=== PATIENT | female | born 1955 | race Caucasian/White ===

== ENCOUNTER → 2019-11-10 09:53 | Outpatient (BNVA) | payer MEDICAID, SELFPAY | PROVIDERS: Family Provider Nurse Practitioner Family; PCP Nurse Practitioner Family; Referring Provider Nurse Practitioner Family; Visit Provider Anesthesiology Pain Medicine | DX: M54.16 Radiculopathy, lumbar region (principal); M79.604 Pain in right leg; M79.605 Pain in left leg; F17.210 Nicotine dependence, cigarettes, uncomplicated | CPT/HCPCS: 64483; 64484; 77003; 99999 ==

== ENCOUNTER → 2019-11-25 13:15 | Outpatient (BNVA) | payer MEDICARE, SELFPAY | PROVIDERS: Family Provider Nurse Practitioner Family; PCP Nurse Practitioner Family; Visit Provider Anesthesiology Pain Medicine | DX: M54.16 Radiculopathy, lumbar region (principal); F17.210 Nicotine dependence, cigarettes, uncomplicated | CPT/HCPCS: 64483; 64484; J1040; J2001; J3490 ==

== ENCOUNTER → 2020-07-30 10:21 | Outpatient (BNVA) | payer MEDICARE, SELFPAY | PROVIDERS: Family Provider Nurse Practitioner Family; PCP Nurse Practitioner Family; Visit Provider Anesthesiology Pain Medicine | DX: M54.41 Lumbago with sciatica, right side (principal); M54.42 Lumbago with sciatica, left side; M54.16 Radiculopathy, lumbar region; M54.9 Dorsalgia, unspecified; F17.210 Nicotine dependence, cigarettes, uncomplicated | CPT/HCPCS: 64483; 64484; 99212; 99213; J1100; J3490 ==

== ENCOUNTER 2021-02-04 10:44 | Outpatient (CLI) | payer MEDICARE, SELFPAY ==
--- NOTE | 2021-02-04 11:03 | CT_ITS ---
WS: [id number] LDCT LUNG CANCER SCREENING TECHNIQUE: Noncontrast CT of the chest with coronal and sagittal reformatted images. CLINICAL INFORMATION: NICOTINE DEPENDENCE COMPARISON: None. DLP: 49.83 mGy.cm DIvol: 1.[address] scans at [facility] use at least one of these dose optimization techniques: automat ed exposure control; mA and/or kV adjustment per patient size (includes targeted exams where dose is matched to clinical indication); or iterative reconstruction. FINDINGS: Mild chronic emphysematous changes. No suspicious pulmonary parenchymal opacities. No acute pulmonary infiltrates. No consolidation or pleural fluid. No mediastinal or hilar lymphadenopathy. Coronary ca lcification. No axillary adenopathy. Cholecystectomy clips. CT/CT lung screening [id number] IMPRESSION: LUNG-RADS: 1-Negative FOLLOW UP: 12 Month: Continue annual screening with LDCT
== END 2021-02-04 10:45 | disposition home or self-care (01) ==
LOC: RAD 10:50
PROVIDERS: PCP Nurse Practitioner Family; Visit Provider Nurse Practitioner Family
DX: Z12.2 Encounter for screening for malignant neoplasm of respiratory organs (principal); Z87.891 Personal history of nicotine dependence
CPT/HCPCS: 71271

== ENCOUNTER 2022-07-26 11:57 | Outpatient (CLI) | payer MEDICARE, SELFPAY ==
--- NOTE | 2022-07-26 12:07 | CT_ITS ---
WS: [id number] LDCT LUNG CANCER SCREENING HISTORY: NICOTINE Dependence, cigarettes TECHNIQUE: Axial imaging performed from the apices to 1 cm below the costophrenic angles. Coronal and sagittal reformats are submitted with axial MIP series. All CT scans at [facility] use at least one of these dose optimization techniques: automated exposure control; mA and/or kV adjustment per patient size (includes targeted exams where dose is matched to clinical indication); or iterativ e reconstruction. DLP: 82.77 mGy.cm DIvol: Mean CTDIvol: 1.60 (mGy) COMPARISON: 02/04/2021 Diagnostic quality: Satisfactory Lung Nodules: 3 mm nodule periphery LEFT upper lobe. No endobronchial lesions. There is a thin septat ion through the proximal RIGHT main bronchus. Lungs: Moderate changes of emphysema. Heart: Normal size heart. No enlargement. No pericardial effusion. Other findings: Benign LEFT adrenal adenoma. Prior cholecystectomy. CT/CT lung screening [id number] IMPRESSION: LUNG-RADS: 2-Benign Appearance or Behavior FOLLOW UP: 12 Month: Continue annual screening with LDCT OTHER FINDINGS (S MODIFIER): None.
== END 2022-07-26 11:58 | disposition home or self-care (01) ==
LOC: RAD 11:59
PROVIDERS: PCP Registered Nurse; Visit Provider Registered Nurse
DX: Z12.2 Encounter for screening for malignant neoplasm of respiratory organs (principal); F17.210 Nicotine dependence, cigarettes, uncomplicated
CPT/HCPCS: 71271

== ENCOUNTER → 2023-05-24 13:50 | Outpatient (BNVA) | payer MEDICARE, SELFPAY | PROVIDERS: PCP Registered Nurse; Referring Provider Nurse Practitioner Family; Visit Provider Thoracic Surgery (Cardiothoracic Vascular Surgery) | DX: R20.9 Unspecified disturbances of skin sensation (principal) | CPT/HCPCS: 99203 ==

== ENCOUNTER 2023-07-27 09:52 | Outpatient (CLI) | payer MEDICARE, SELFPAY ==
--- NOTE | 2023-07-27 09:59 | CT_ITS ---
WS: [id number] LDCT LUNG CANCER SCREENING TECHNIQUE: Noncontrast CT of the chest with coronal and sagittal reformatted images. CLINICAL INFORMATION: NICOTINE DEPENDENCE, CIGARETTES COMPARISON: 2021 DLP: 66.80 mGy.cm DIvol: Mean CTDIvol: 1.50 (mGy) All CT scans at [facility] use at least one of these dose optimization techniques: automat ed exposure control; mA and/or kV adjustment per patient size (includes targeted exams where dose is matched to clinical indication); or iterative reconstruction. FINDINGS: Small 4 mm nodule RIGHT lower lobe laterally. Tiny 3 mm nodule LEFT upper lobe is stable. A few additional scattered tiny subpleural nodules. No new suspicious pulmonary parenchymal opacities. Recommend 12-month follow-up. LEFT lower lobe thyroid nodule measuring 12 mm. Normal caliber thoracic aorta. Aortic calcification. Coronary calcification. No mediastinal or hilar lymphadenopathy. No axillary lymphadenopathy. Moderate chronic emphysematous changes. Incidental stable 2.5 cm LEFT adrenal adenoma unchanged. Prio r cholecystectomy. Hypertrophic changes thoracic spine. IMPRESSION: CT/CT lung screening [id number] LUNG-RADS: 2-Benign Appearance or Behavior FOLLOW UP: 12 Month: Continue annual screening with LDCT
== END 2023-07-27 09:53 | disposition home or self-care (01) ==
LOC: RAD 09:53
PROVIDERS: PCP Registered Nurse; Visit Provider Nurse Practitioner Family
DX: Z12.2 Encounter for screening for malignant neoplasm of respiratory organs (principal); F17.210 Nicotine dependence, cigarettes, uncomplicated
CPT/HCPCS: 71271

== ENCOUNTER 2023-08-14 13:22 | Emergency (ER) | payer MEDICARE, SELFPAY ==
[2023-08-14 13:46] VITALS: BP 98/60; PULSE 99; RESP 18; TEMP 36.8; O2SAT 94; BMI 30.2
--- NOTE | 2023-08-14 14:11 | W.ED.EXTPRO ---
HPI - Extremity Problem General: Chief complaint: Extremity Problem,Nontraumatic Stated complaint: swollen right foot Time Seen by Provider: 08/14/23 14:02 Source: patient and family Mode of arrival: ambulatory Limitations: no limitations History of Present Illness: Patient is a nice 67-year-old female who presents to ED today at the request of her daughter for evaluation of pain and color changes to her right toes. Patient states she noticed color changes starting approximately 2 to 3 weeks ago but states pain just started a few days ago-pain seems to be at night when she goes to bed. She does not complain of classic claudication symptoms. She does chronically have cold feet . She was seen by Dr. Bueno here approximately 2 months ago and on that visit good pulses were noted throughout bilateral lower extremities. Discussed trialing her on nifedipine. She was felt at that time to have some peripheral vascular disease. No obvious vasospastic disease/embolic phenomenon however she is a chronic longstanding smoker. MD Complaint: extremity pain Onset (ago): week(s) Pain Consistency: constant Location: right and lower extremity Quality: burning Radiation: none Relieving factors: nothing Exacerbating factors: nothing Associated symptoms: Reports no associated symptoms; Deny chest pain Context: history of peripheral vascular disease Review of Systems Card: Denies: chest pain, palpitations, irregular heart rhythm, edema, swelling of feet/ankles, lightheadedness, syncope or pre-syncope Resp: Denies: dyspnea Musc: Reports: extremity pain; Denies: neck pain, back pain, extremity swelling, joint pain, joint swelling, joint redness or joint warmth Skin/Breast: Reports: other (color change to R toes) Neuro: Denies: numbness in extremities, weakness in extremities, sensory changes or difficulty walking PFSH ED PFSH: Family History Sister Cancer breast Chronic obstructive lung disease Diabetes Pulmonary emphysema Brother Cancer Diabetes Mother Chronic obstructive lung disease Pulmonary emphysema Social History Smoking and tobacco/nicotine status: current every day tobacco/nicotine user cigarettes Packs smoked per day: 1 Years cigarettes smoked: 61 [ Other cigarette details: 1 ppd] Alcohol intake: never Substance/Drug Use: never Lives independently: Yes Pets and animals: Yes Pets & animals: cat(s) and dog(s) Physical Exam Const: COMMON NORMALS: no acute distress, average body habitus, patient oriented x3, no limitations, healthy appearing, alert and well nourished Resp: COMMON NORMALS: normal respiratory effort and clear to auscultation bilaterally AUSCULTATION: clear to auscultation bilaterally Cardio: COMMON NORMALS: regular rate and regular rhythm RATE: regular rate RHYTHM: regular rhythm Extremity: COMMON NORMALS: full ROM, no joint enlargement, no clubbing, cyanosis or edema, no calf tenderness and no pedal edema GENERAL: Yes normal exam except as noted RIGHT LOWER EXTREMITY: Yes foot & digits LEFT LOWER EXTREMITY: Yes foot & digits OTHER: pt has easily palpable DP/PT pulses on L foot but not on R; right distal foot/toes are cool to the touch when compared to L and have a dusky appearance Neuro: COMMON NORMALS: patient oriented x3, moves all extremities, no focal motor deficits and no sensory deficits noted SENSORIUM/ORIENTATION: Yes alert Course Vital Signs: Vital signs: Vital Signs Temperature 98.3 F 08/14/23 13:46 Pulse Rate 99 08/14/23 13:46 Respiratory Rate 18 08/14/23 13:46 Blood Pressure 98/60 08/14/23 13:46 Pulse Oximetry 94 08/14/23 13:46 Oxygen Delivery Me thod Room Air 08/14/23 13:46 MDM - Extremity (Nontraumatic) Medical Decision Making Patient's ultrasound showing no stenosis or occlusion. DDx includes Raynaud's, blue toe syndrome, Buerger's disease. She has been offered trial of Nifedipine by vascular specialist Dr. Bueno but patient has not started this medication. She does chronically have low blood pressure so is worried about this. Recommend smoking cessation. Offered to get her another appointment with Dr. Bueno but she states she will follow up with primary care provider. Medical Records I reviewed the patient's medical records. Lab Data I reviewed the patient's lab results. 08/14/23 14:25 08/14/23 14:25 Radiology Impressions Duplex Scan Lower Extremity Artery 08/14/23 14:16 IMPRESSION: No stenosis or occlusion. Laboratory Results WBC 12.77 10^3/uL (3.29-11.43) H 08/14/23 14:25 RBC 4.25 10^6/uL (3.85-5.65) 08/14/23 14:25 Hgb 13.80 g/dL (11.27-16.99) 08/14/23 14:25 Hct 42.0 % (36-47) 08/14/23 14:25 MCV 98.8 fl (85-98) H 08/14/23 14:25 MCH 32.5 pg (27-33) 08/14/23 14:25 MCHC 32.9 g/dL (30-55) 08/14/23 14:25 RDW 15.5 % (12.1-15.1) H 08/14/23 14:25 Plt Count 269 10^3/cmm (157-399) 08/14/23 14:25 MPV 8.9 fL (7.4-10.4) 08/14/23 14:25 Neut % (Auto) 92.3 % 08/14/23 14:25 Lymph % (Auto) 4.2 % 08/14/23 14:25 [place] % (Auto) 2.3 % 08/14/23 14:25 Eos % (Auto) 0.0 % 08/14/23 14:25 Baso % (Auto) 0.2 % 08/14/23 14:25 Neut # (Auto) 11.80 10^3/uL (1.8-7.7) H 08/14/23 14:25 Lymph # (Auto) 0.5 10^3/uL (0.8-4.8) L 08/14/23 14:25 [place] # (Auto) 0.3 10^3/uL (0.2-0.9) 08/14/23 14:25 Eos # (Auto) 0.0 10^3/uL (0.0-0.8) 08/14/23 14:25 Baso # (Auto) 0.0 10^3/uL (0.0-0.1) 08/14/23 14:25 Nucleated RBC % (auto) 0 % 08/14/23 14:25 Nucleated RBCs # 0.0 /100WBC 08/14/23 14:25 PT 12.80 SECONDS (12.1-14.9) 08/14/23 14:25 INR 0.93 (0.8-1.2) 08/14/23 14:25 APTT 24.1 SECONDS (23.9-36.7) 08/14/23 14:25 Sodium 140 mmol/L (136-145) 08/14/23 14:25 Potassium 3.8 mmol/L (3.5-5.1) 08/14/23 14:25 Chloride 101 mmol/L (98-107) 08/14/23 14:25 Carbon Dioxide 25 mmol/L (22-29) 08/14/23 14:25 Anion Gap 17.8 (5-19) 08/14/23 14:25 BUN 18 mg/dL (8-23) 08/14/23 14:25 Creatinine 1.1 mg/dL (0.5-0.9) H 08/14/23 14:25 GFR Calculation 49.4 mL/min (90-130) L 08/14/23 14:25 Glucose 172 mg/dL (65-115) H 08/14/23 14:25 Calculated Osmolality 296 mOsm/kg (285-295) H 08/14/23 14:25 Calcium 9.3 mg/dL (8.5-10.5) 08/14/23 14:25 Total Bilirubin 0.3 mg/dL (0.15-1.2) 08/14/23 14:25 AST 23 U/L (0-32) 08/14/23 14:25 ALT 36 U/L (0-33) H 08/14/23 14:25 Alkaline Phosphatase 108 U/L (35-105) H 08/14/23 14:25 Total Protein 6.3 g/dL (6.6-8.7) L 08/14/23 14:25 Albumin 3.8 g/dL (3.5-5.2) 08/14/23 14:25 Globulin 2.5 g/dL (1.3-4.6) 08/14/23 14:25 All radiology interpretation(s) finalized by discharge Discharge Plan Discharge Patient Disposition: Home Clinical Impression: Blue toe syndrome Qualifiers: Laterality: right Qualified Code(s): 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 Condition: Stable Prescriptions: No Action acetaminophen [Tylenol Extra Strength] 500 mg tablet 500 mg PO .2 Q 6 hours PRN (Reason: Pain, Mild) montelukast 10 mg tablet 10 mg PO DAILY furosemide [Lasix] 40 mg tablet 40 mg PO DAILY fluticasone propionate [Allergy Relief (fluticasone)] 50 mcg/actuation spray,suspension 1 spray INTRANASAL DAILY Symbicort 160-4.5 mcg/actuation HFA aerosol inhaler 2 puff INHALATION BID cetirizine [Allergy Relief (cetirizine)] 10 mg tablet 10 mg PO DAILY albuterol sulfate [ProAir HFA] 90 mcg/actuation HFA aerosol inhaler 1 inh INHALATION .as needed famotidine 10 mg tablet 20 mg PO DAILY PRN (Reason: gerd) ezetimibe 10 mg tablet 10 mg PO DAILY cephalexin 250 mg capsule 250 mg PO TID Tums 500 500 mg calcium (1,250 mg) Tablet,Chewable 500 mg PO DAILY PRN (Reason: antacid) Discharge Orders: Discharge ED (Routine); Ordered 08/14/23 Ordered By: Afsaneh Fernandez Referrals: Jada Young DEFENSE ATTORNEY [Primary Care Provider] - Coding Level of Care Code ED Early Childhood Education Coordinator for Aura De Los Santos
--- NOTE | 2023-08-14 14:16 | USR_ITS ---
PROCEDURE INFORMATION: Exam: US Duplex Right Lower Extremity Arteries Or Arterial Bypass Grafts Exam date and time: 08/14/2023 2:41 PM Age: 67 years old Clinical indication: Other: See below; Additional info: Toes cold/discolored/pain TECHNIQUE: Imaging protocol: Right Real-time duplex scan of the arteries or arterial bypass grafts of the right lower extremity with 2-D regan scale, color Doppler flow and spectral waveform analysis. Images documented and saved. COMPARISON: No relevant prior studies available. FINDINGS: Right common femoral artery: No occlusion or significant stenosis. Normal waveform. No pseudoaneurysm in the inguinal region. Right superficial femoral artery: No occlusion or significant stenosis. Normal waveform. Right popliteal artery: No occlusion or significant stenosis. Normal waveform. Right calf/foot arteries: No occlusion or significant stenosis in the visualized arteries. Monophasic waveform in the posterior tibial artery. Dorsalis pedis artery is patent. Anterior tibial and peroneal arteries were either not visualized or not imaged. Soft tissues: No hematoma or collection. US/[place] [id number] IMPRESSION: No stenosis or occlusion.
[2023-08-14 14:31] LABS: Basophils % 0.2 %; Lymphocytes # 0.5 10^3/uL (0.8-4.8); Lymphocytes % 4.2 %; Mean Corpuscular HGB Conc 32.9 g/dL (30-55); Mean Corpuscular Hemoglobin 32.5 pg (27-33); Mean Corpuscular Volume 98.8 fl (85-98); Mean Platelet Volume 8.9 fL (7.4-10.4); Monocytes # 0.3 10^3/uL (0.2-0.9); Monocytes % 2.3 %; Neutrophils % 92.3 %; Nucleated Red Blood Cells % 0 %; Platelet Count 269 10^3/cmm (157-399); Red Blood Count 4.25 10^6/uL (3.85-5.65); Red Cell Distribution Width 15.5 % (12.1-15.1); White Blood Count 12.77 10^3/uL (3.29-11.43)
[2023-08-14 14:45] LABS: INR 0.93 (0.8-1.2)
[2023-08-14 14:46] LABS: Partial Thromboplastin Time 24.1 SECONDS (23.9-36.7)
[2023-08-14 14:51] LABS: Alanine Aminotransferase 36 U/L (0-33); Albumin Level 3.8 g/dL (3.5-5.2); Alkaline Phosphatase 108 U/L (35-105); Anion Gap 17.8 (5-19); Aspartate Amino Transferase 23 U/L (0-32); Blood Urea Nitrogen 18 mg/dL (8-23); Calcium 9.3 mg/dL (8.5-10.5); Carbon Dioxide 25 mmol/L (22-29); Chloride 101 mmol/L (98-107); Globulin 2.5 g/dL (1.3-4.6); Glomerular Filtration Rate 49.4 mL/min (90-130); Glucose 172 mg/dL (65-115); Osmolality Calculated 296 mOsm/kg (285-295); Potassium 3.8 mmol/L (3.5-5.1); Sodium 140 mmol/L (136-145); Total Bilirubin 0.3 mg/dL (0.15-1.2); Total Protein 6.3 g/dL (6.6-8.7)
[2023-08-14 16:17] VITALS: BP 112/72; PULSE 68; RESP 16; O2SAT 98
== END 2023-08-14 16:19 | disposition home or self-care (01) ==
PROVIDERS: Emergency Provider Physician Assistant; PCP Nurse Practitioner Family
DX: I75.021 Atheroembolism of right lower extremity (principal); F17.210 Nicotine dependence, cigarettes, uncomplicated
CPT/HCPCS: 36415; 80053; 85025; 85610; 85730; 93926; 99284

== ENCOUNTER → 2023-08-27 13:27 | Outpatient (BNVA) | payer MEDICARE, SELFPAY | PROVIDERS: PCP Nurse Practitioner Family; Visit Provider Podiatrist Foot & Ankle Surgery | DX: I73.9 Peripheral vascular disease, unspecified (principal); M79.671 Pain in right foot; M79.672 Pain in left foot; F17.200 Nicotine dependence, unspecified, uncomplicated | CPT/HCPCS: 99204 ==

== ENCOUNTER → 2023-09-18 14:15 | Outpatient (BNVA) | payer MEDICARE, SELFPAY | PROVIDERS: PCP Nurse Practitioner Family; Visit Provider Thoracic Surgery (Cardiothoracic Vascular Surgery) | DX: I73.9 Peripheral vascular disease, unspecified (principal); F17.210 Nicotine dependence, cigarettes, uncomplicated | CPT/HCPCS: 99213 ==

== ENCOUNTER 2023-09-22 09:28 | Emergency (ER) | payer MEDICARE, SELFPAY ==
[2023-09-22] VITALS (10 sets, daily range): BP systolic 120–150; BP diastolic 69–83; PULSE 87–98; RESP 18; TEMP 36.5; O2SAT 87–97; BMI 31.2
--- NOTE | 2023-09-22 09:43 | XRR_ITS ---
PROCEDURE INFORMATION: Exam: XR Chest Exam date and time: 09/22/2023 10:01 AM Age: 67 years old Clinical indication: Dyspnea; Additional info: SOB TECHNIQUE: Imaging protocol: Radiologic exam of the chest. Views: 1 view. COMPARISON: CT lung screening [id number] 07/27/2023 10:27 AM FINDINGS: Lungs: Hyperinflation. Slight probable atelectasis, fibrosis, and/or vascular structure projecting obliquely over right lung base. Mild interstitial prominence, possible fibrosis. Pleural spaces: Biapical pleural thickening appears chronic. No large or obvious pneumothorax nor pleural effusion seen. Heart/Mediastinum: Heart size appears within normal. Probable chronic fat pads about heart bilaterally, similar to images from CT 07/27/2023. Vasculature: Atherosclerotic disease aorta. Calcifications neck suggesting carotid artery calcifications bilaterally. Bones/joints: Degenerative changes spine. XR/XR chest 1V portable [id number] IMPRESSION: Hyperinflation. Slight probable atelectasis, fibrosis, and/or vascular structure projecting obliquely over right lung base. Mild interstitial prominence, possible fibrosis. Findings compatible with pulmonary emphysema.
--- NOTE | 2023-09-22 09:54 | ED_ITS ---
HPI - COVID 2 General: Chief Complaint: COVID symptoms Stated Complaint: Low O2 Time Seen by Provider: 09/22/23 09:44 Source: patient Mode of arrival: ambulatory Limitations: no limitations History of Present Illness: 67-year-old female states that she has h ad cough congestion over the last week. She does have a history of COPD she denies any fevers she denies any worse improved factors states that over the last 2 days she has had some slight hypoxia with exertion pulse ox here is 93% on room air she denies any pain. COVID 19 common symptoms: positive non-productive cough and dyspnea; negative fever(s), chills, body aches, headache(s), throat pain, nausea, vomiting or diarrhea COVID 19 other sytmptoms: negative chest pain COVID Results: 2 SARS-CoV-2 Antigen (Rapid) negative (Negative) 09/22/23 10:00 Review of Systems 2 Const: Denies: fever(s), chills, body aches or change in appetite ENMT: Denies: throat pain or dental pain Card: Denies: chest pain Resp: Reports: dyspnea, non-productive cough and wheezing GI: Denies: abdominal pain, nausea, vomiting or diarrhea : Denies: dysuria Musc: Denies: neck pain or back pain Skin/Breast: Denies: rash Neuro: Denies: headache(s) PFSH ED 2 PFSH: Family History Sister Cancer breast Chronic obstructive lung disease Diabetes Pulmonary emphysema Brother Cancer Diabetes Mother Chronic obstructive lung disease Pulmonary emphysema Social History Smoking and tobacco/nicotine status: current every day tobacco/nicotine user cigarettes Packs smoked per day: 1 Years cigarettes smoked: 61 [ Other cigarette details: 1 ppd] Alcohol intake: never Substance/Drug Use: never Lives independently: Yes Pets and animals: Yes Pets & animals: cat(s) and dog(s) Physical Exam 2 Const: COMMON NORMALS: no acute distress, patient oriented x3 and healthy appearing HENMT: COMMON NORMALS: normocephalic and atraumatic HEAD & SCALP: n ormocephalic and atraumatic Neck/C-Spine: COMMON NORMALS: full ROM and supple Chest: COMMONS NORMALS: normal inspection of the chest and normal palpation of entire chest wall Resp: COMMON NORMALS: normal respiratory effort, No retractions and No use of accessory muscles AUSCULTATION: wheezes Cardio: COMMON NORMALS: regular rate, regular rhythm and No murmurs present (Cardio) RATE: regular rate RHYTHM: regular rhythm GI: COMMON NORMALS: Normal to inspection, nondistended, normoactive bowel sounds present, Soft to palpation, non-tender and no masses PALPATION: Yes Soft to palpation Extremity: COMMON NORMALS: normal to inspection and full ROM Neuro: COMMON NORMALS: patient oriented x3, moves all extremities and no focal motor deficits Psych: COMMON NORMALS: mental status grossly normal, Normal thought process present and cooperative THOUGHT PROCESS: Normal thought process present Skin: COMMON NORMALS: no rashes or lesions noted and no wounds GENERAL SKIN EXAM: no rashes or lesions noted Course 2 Vital Signs: Vital signs: Vital Signs Temperature 97.7 F 09/22/23 09:38 Pulse Rate 97 09/22/23 11:17 Respiratory Rate 18 09/22/23 09:38 Blood Pressure 142/77 09/22/23 11:17 Pulse Oximetry 97 09/22/23 11:17 Oxygen Delivery Me thod Nasal Cannula 09/22/23 11:17 Oxygen Flow Rate 3 09/22/23 11:17 MDM - COVID Medical Decision Making Patient presents here with likely COPD exacerbation did give her Decadron here she had increased cough we will place her on doxycycline she did qualify for 3 L of home O2 will send her home on home oxygen she has follow-up with pulmonology here Dr. Santizo October she is return if worsening she understands agrees to plan. Medical Records I reviewed the patient's medical records. Lab Data I reviewed the patient's lab results. 09/22/23 10:28 09/22/23 10:28 Radiology Impressions Chest X-Ray 09/22/23 09:43 IMPRESSION: Hyperinflation. Slight probable atelectasis, fibrosis, and/or vascular structure projecting obliquely over right lung base. Mild interstitial prominence, possible fibrosis. Findings compatible with pulmonary emphysema. Laboratory Results WBC 11.00 10^3/uL (3.29-11.43) 09/22/23 10:28 RBC 4.22 10^6/uL (3.85-5.65) 09/22/23 10:28 Hgb 13.70 g/dL (11.27-16.99) 09/22/23 10:28 Hct 41.2 % (36-47) 09/22/23 10:28 MCV 97.6 fl (85-98) 09/22/23 10:28 MCH 32.5 pg (27-33) 09/22/23 10:28 MCHC 33.3 g/dL (30-55) 09/22/23 10:28 RDW 16.0 % (12.1-15.1) H 09/22/23 10:28 Plt Count 299 10^3/cmm (157-399) 09/22/23 10:28 MPV 9.0 fL (7.4-10.4) 09/22/23 10:28 Neut % (Auto) 75.7 % 09/22/23 10:28 Lymph % (Auto) 15.5 % 09/22/23 10:28 [place] % (Auto) 7.0 % 09/22/23 10:28 Eos % (Auto) 0.5 % 09/22/23 10:28 Baso % (Auto) 0.2 % 09/22/23 10:28 Neut # (Auto) 8.33 10^3/uL (1.8-7.7) H 09/22/23 10:28 Lymph # (Auto) 1.7 10^3/uL (0.8-4.8) 09/22/23 10:28 [place] # (Auto) 0.8 10^3/uL (0.2-0.9) 09/22/23 10:28 Eos # (Auto) 0.1 10^3/uL (0.0-0.8) 09/22/23 10:28 Baso # (Auto) 0.0 10^3/uL (0.0-0.1) 09/22/23 10:28 Nucleated RBC % (auto) 0 % 09/22/23 10:28 Nucleated RBCs # 0.0 /100WBC 09/22/23 10:28 Sodium 140 mmol/L (136-145) 09/22/23 10:28 Potassium 3.4 mmol/L (3.5-5.1) L 09/22/23 10:28 Chloride 101 mmol/L (98-107) 09/22/23 10:28 Carbon Dioxide 28 mmol/L (22-29) 09/22/23 10:28 Anion Gap 14.4 (5-19) 09/22/23 10:28 BUN 20 mg/dL (8-23) 09/22/23 10:28 Creatinine 1.1 mg/dL (0.5-0.9) H 09/22/23 10:28 GFR Calculation 49.4 mL/min (90-130) L 09/22/23 10:28 Glucose 110 mg/dL (65-115) 09/22/23 10:28 Calculated Osmolality 293 mOsm/kg (285-295) 09/22/23 10:28 Calcium 9.3 mg/dL (8.5-10.5) 09/22/23 10:28 Total Bilirubin 0.5 mg/dL (0.15-1.2) 09/22/23 10:28 AST 16 U/L (0-32) 09/22/23 10:28 ALT 32 U/L (0-33) 09/22/23 10:28 Alkaline Phosphatase 103 U/L (35-105) 09/22/23 10:28 NT-Pro-B Natriuret Pep 506 pg/mL (0-125) H 09/22/23 10:28 Total Protein 6.1 g/dL (6.6-8.7) L 09/22/23 10:28 Albumin 3.3 g/dL (3.5-5.2) L 09/22/23 10:28 Globulin 2.8 g/dL (1.3-4.6) 09/22/23 10:28 Influenza Type A Ag negative (Negative) 09/22/23 10:00 Influenza Type B Ag negative (Negative) 09/22/23 10:00 SARS-CoV-2 Ag (Rapid) negative (Negative) 09/22/23 10:00 2 SARS-CoV-2 Antigen (Rapid) negative (Negative) 09/22/23 10:00 All radiology interpretation(s) finalized by discharge Discharge Plan Discharge Patient Disposition: Home Clinical Impression: Acute exacerbation of chronic obstructive pulmonary disease Condition: Stable Prescriptions: New doxycycline hyclate 100 mg tablet 100 mg PO BID 10 Days Qty: 20 0RF ondansetron 4 mg tablet,disintegrating 4 mg PO Q6H PRN (Reason: nausea and vomiting) Qty: 14 0RF No Action acetaminophen [Tylenol Extra Strength] 500 mg tablet 500 mg PO .2 Q 6 hours PRN (Reason: Pain, Mild) montelukast 10 mg tablet 10 mg PO DAILY furosemide [Lasix] 40 mg tablet 40 mg PO DAILY fluticasone propionate [Allergy Relief (fluticasone)] 50 mcg/actuation spray,suspension 1 spray INTRANASAL DAILY Symbicort 160-4.5 mcg/actuation HFA aerosol inhaler 2 puff INHALATION BID cetirizine [Allergy Relief (cetirizine)] 10 mg tablet 10 mg PO DAILY albuterol sulfate [ProAir HFA] 90 mcg/actuation HFA aerosol inhaler 1 inh INHALATION .as needed famotidine 10 mg tablet 20 mg PO DAILY PRN (Reason: gerd) ezetimibe 10 mg tablet 10 mg PO DAILY pentoxifylline 400 mg tablet extended release 400 mg PO TID Qty: 90 3RF Rx Instructions: must administer with a meal/food clopidogrel 75 mg tablet 75 mg PO DAILY Qty: 30 3RF nifedipine 30 mg tablet extended release 30 mg PO DAILY Qty: 30 3RF bupropion HCl [Wellbutrin XL] 150 mg tablet extended release 24 hr 150 mg PO QAM Qty: 30 3RF tramadol 50 mg tablet 50 mg PO BID PRN (Reason: pain) Qty: 30 1RF cephalexin 250 mg capsule 250 mg PO TID Tums 500 500 mg calcium (1,250 mg) Tablet,Chewable 500 mg PO DAILY PRN (Reason: antacid) Discharge Orders: Discharge ED (Routine); Ordered 09/22/23 Ordered By: Peña Valle Other Ambulatory Orders: DME: Oxygen (Order) Location: None Selected Ordered By: Peña Valle Referrals: Jada Young NP [Primary Care Provider] - Discharge Diet: Advance as tolerated Discharge Activity: Resume usual activity Patient Instructions: COPD (Chronic Obstructive Pulmonary Disease) (ED) Coding Level of Care Code ED Bed Setter for Aura De Los Santos
[2023-09-22 10:22] LABS: Influenza A by IFA negative (Negative); Influenza B by IFA negative (Negative); SARS Covid-2 Antigen negative (Negative)
[2023-09-22 10:46] LABS: Basophils % 0.2 %; Eosinophils # 0.1 10^3/uL (0.0-0.8); Eosinophils % 0.5 %; Hematocrit 41.2 % (36-47); Lymphocytes # 1.7 10^3/uL (0.8-4.8); Lymphocytes % 15.5 %; Mean Corpuscular HGB Conc 33.3 g/dL (30-55); Mean Corpuscular Hemoglobin 32.5 pg (27-33); Mean Corpuscular Volume 97.6 fl (85-98); Monocytes # 0.8 10^3/uL (0.2-0.9); Neutrophils # 8.33 10^3/uL (1.8-7.7); Neutrophils % 75.7 %; Nucleated Red Blood Cells % 0 %; Platelet Count 299 10^3/cmm (157-399); Red Blood Count 4.22 10^6/uL (3.85-5.65)
[2023-09-22] MEDS: dexamethasone 10 mg/mL INJ IVP (11:15)
[2023-09-22 11:19] LABS: Alanine Aminotransferase 32 U/L (0-33); Albumin Level 3.3 g/dL (3.5-5.2); Alkaline Phosphatase 103 U/L (35-105); Anion Gap 14.4 (5-19); Aspartate Amino Transferase 16 U/L (0-32); Blood Urea Nitrogen 20 mg/dL (8-23); Calcium 9.3 mg/dL (8.5-10.5); Carbon Dioxide 28 mmol/L (22-29); Chloride 101 mmol/L (98-107); Globulin 2.8 g/dL (1.3-4.6); Glomerular Filtration Rate 49.4 mL/min (90-130); Glucose 110 mg/dL (65-115); NT Pro B Type Natriuretic Pept 506 pg/mL (0-125); Osmolality Calculated 293 mOsm/kg (285-295); Potassium 3.4 mmol/L (3.5-5.1); Sodium 140 mmol/L (136-145); Total Bilirubin 0.5 mg/dL (0.15-1.2); Total Protein 6.1 g/dL (6.6-8.7)
== END 2023-09-22 12:54 | disposition home or self-care (01) ==
PROVIDERS: Emergency Provider Emergency Medicine; PCP Nurse Practitioner Family
DX: J44.1 Chronic obstructive pulmonary disease with (acute) exacerbation (principal); Z79.02 Long term (current) use of antithrombotics/antiplatelets; Z11.52 Encounter for screening for COVID-19; F17.210 Nicotine dependence, cigarettes, uncomplicated
CPT/HCPCS: 36415; 71045; 80053; 83880; 85025; 87426; 87804; 96374; 99284; J1100

== ENCOUNTER 2023-09-26 15:45 | Outpatient (CLI) | payer MEDICARE, SELFPAY ==
[2023-09-26] MEDS: iohexol 350 mg/mL 500 mL Btl (per mL) IV (16:17)
--- NOTE | 2023-09-26 16:30 | CTR_ITS ---
PROCEDURE INFORMATION: Exam: CTA Abdominal Aorta and Bilateral Lower Extremities (Run-off) With Contrast Exam date and time: 09/26/2023 4:01 PM Age: 67 years old Clinical indication: Prior surgery; Surgery date: 6+ months; Surgery type: Gb, tubal ligation; Patient HX: Leg pain; RT foot swollen x6 wks with purple toes, 3us neg for dvt TECHNIQUE: Imaging protocol: Computed tomographic angiography of the of the abdominal aorta, pelvis and bilateral lower extremities with contrast. 3D rendering (Not supervised by radiologist): MIP and/or 3D reconstructed images were created by the technologist. Radiation optimization: All CT scans at this facility use at least one of these dose optimization techniques: automated exposure control; mA and/or kV adjustment per patient size (includes targeted exams where dose is matched to clinical indication); or iterative reconstruction. Contrast material: OMNI 350; Contrast volume: 125 ml; Contrast route: INTRAVENOUS (IV); COMPARISON: [place] [id number] 08/14/2023 2:41 PM RADIATION DOSE METRICS: Total DLP (mGy-cm): 1263.99 FINDINGS: Aorta: Moderate atherosclerosis of the aorta. No aneurysm or dissection. Celiac trunk and mesenteric arteries: No occlusion or significant stenosis. Renal arteries: No occlusion or significant stenosis. Right iliac arteries: No occlusion or significant stenosis. Right femoral/popliteal arteries: The right popliteal artery has 30-50% stenosis related to atherosclerotic changes proximally with occlusion at the level of the knee joint. Right infrapopliteal arteries: There is reconstitution of the right infrapopliteal vessels at the bifurcation, likely from collaterals. The bifurcation is in high position which is likely an anatomic variant. The right anterior tibial artery is patent. The right posterior tibial artery is occluded at its origin. The right peroneal artery is patent with collateral supply to the posterior tibial artery distribution at the level of the ankle. Left iliac arteries: No occlusion or significant stenosis. Left femoral/popliteal arteries: No occlusion or significant stenosis. Left infrapopliteal arteries: No occlusion or significant stenosis. Lungs: Partially seen anterior left lower lobe scarring or atelectasis, unchanged. Liver: Suspected fatty infiltration of the liver. Gallbladder and bile ducts: Cholecystectomy. Pancreas: Unremarkable. No mass. No ductal dilation. Spleen: Normal. No splenomegaly. Adrenal glands: There is a left adrenal gland mass measuring 2.2 cm which is indeterminate. Statistically this is most likely an adenoma. Kidneys and ureters: Normal. No mass. Stomach and bowel: There are diverticuli in the sigmoid colon with wall thickening versus underdistention diffusely in the colon. Appendix: No evidence of appendicitis. Urinary bladder: Unremarkable. No mass. Reproductive: Unremarkable as visualized. Intraperitoneal space: Unremarkable. No free air. No significant fluid collection. Lymph nodes: No lymphadenopathy. Bones/joints: No acute fracture. No dislocation. Soft tissues: Unremarkable. CT/CT angio abd aorta runof [id number] IMPRESSION: 1. There is occlusion of the distal right popliteal artery. The right posterior tibial artery is also occluded with reconstitution at the level ankle joint from collaterals. The right anterior tibial and peroneal arteries are patent and likely supplied by collaterals. 2. The colon has diffuse wall thickening with distal diverticuli. Correlate for colitis. 3. Indeterminate 2.2 cm left adrenal gland mass statistically most likely an adenoma.
== END 2023-09-26 15:46 | disposition home or self-care (01) ==
LOC: RAD 15:45
PROVIDERS: PCP Nurse Practitioner Family; Visit Provider Thoracic Surgery (Cardiothoracic Vascular Surgery)
DX: I70.201 Unspecified atherosclerosis of native arteries of extremities, right leg (principal); M79.89 Other specified soft tissue disorders; R23.8 Other skin changes
CPT/HCPCS: 75635; Q9967

== ENCOUNTER → 2023-09-27 11:08 | Outpatient (BNVA) | payer MEDICARE, SELFPAY | PROVIDERS: PCP Nurse Practitioner Family; Visit Provider Thoracic Surgery (Cardiothoracic Vascular Surgery) | DX: I73.9 Peripheral vascular disease, unspecified (principal); F17.210 Nicotine dependence, cigarettes, uncomplicated | CPT/HCPCS: 99213 ==

== ENCOUNTER → 2023-10-03 12:27 | Outpatient (BNVA) | payer MEDICARE, SELFPAY | PROVIDERS: PCP Nurse Practitioner Family; Visit Provider Internal Medicine | DX: R07.9 Chest pain, unspecified (principal); I73.9 Peripheral vascular disease, unspecified; R58 Hemorrhage, not elsewhere classified; F17.210 Nicotine dependence, cigarettes, uncomplicated; R94.31 Abnormal electrocardiogram [ECG] [EKG] | CPT/HCPCS: 36415; 80048; 85025; 85610; 93005; 99204 ==

== ENCOUNTER → 2023-10-05 12:54 | Outpatient (BNVA) | payer MEDICARE, SELFPAY | PROVIDERS: PCP Nurse Practitioner Family; Visit Provider Thoracic Surgery (Cardiothoracic Vascular Surgery) | DX: I73.9 Peripheral vascular disease, unspecified (principal); L97.512 Non-pressure chronic ulcer of other part of right foot with fat layer exposed; L97.421 Non-pressure chronic ulcer of left heel and midfoot limited to breakdown of skin | CPT/HCPCS: 11042; 97597; 99213; A6210 ==

== ENCOUNTER 2023-10-10 08:25 | Outpatient (CLI) | payer MEDICARE, SELFPAY ==
[2023-10-10] VITALS (52 sets, daily range): BP systolic 89–132; BP diastolic 48–68; PULSE 68–107; RESP 15–33; TEMP 36.8–37.2; O2SAT 93–100; BMI 31.2
--- NOTE | 2023-10-10 09:00 | XACV_ITS ---
Exam Room: 2 Ht: 152 cm Wt: 73 kg BSA: 1.78 m2 Gender: Female : 1955 Any Known Allergies: Other Exam Priority: Routine Procedure(s): Procedure Description: Diagnostic procedure Procedure Description: Peripheral Cath Diagnostic Procedure Procedure Description: Abdominal aortic angiography Procedure Description: Lower extremities' angiography Procedure Description: Peripheral vascular Intervention Procedure Description: PV Balloon Abdominal Diagnostic Findings Distal abdominal aorta: Patent. Lower Extremity Diagnostic Findings INDICATION: Chronic limb threatening ischemia of right lower extremity/ Critical limb ischemia/non healing wounds. Right Mid-longitudinal Popliteal Artery: Total 100% occlusion. Right lower extremity findings: Right common iliac artery is patent. Right external iliac artery is patent. Right internal iliac artery is patent. Right common femoral artery is patent. Right profunda artery is patent. Right SFA is patent. Right popliteal artery is totally occluded with collateral flow below the knee which is very slow. It is heavily calcified. Below the knee patient has patent peroneal artery. Sluggish flow is noted in anterior tibial artery. Posterior tibial artery is totally occluded.. Left lower extremity findings: Left common iliac artery is patent. Left external iliac artery is patent. Left internal iliac artery is patent. Left common femoral artery is patent. Left profunda artery is patent. Left SFA is patent. Left popliteal artery is patent. Below the knee patient has three-vessel runoff with patent posterior tibial, anterior tibial and peroneal arteries.. Lower Extremity Interventional Findings Right Mid-longitudinal Popliteal Artery: 100% stenosis treated with AB ARMADA 35 OTW [id number] and Lutonix DCB 5.0 X 100mm. Procedure detail: We obtained access in the left common femoral artery. After diagnostic images were taken, to be decided to perform balloon angioplasty of the totally occluded right popliteal artery. We used a Glidewire and UF catheter to go up and over into the right SFA. Over the wire, sheath was switched to long 45 cm Cook sheath. Using seeker support catheter and Glidewire we crossed the totally occluded segment of right popliteal artery. This is calcified vessel. Seeker support catheter was advanced into the TP segment to confirm true lumen placement. Glidewire was placed again through the seeker catheter. We then performed balloon angioplasty with 4.0 x 100 mm [place] balloon. There was calcification versus small dissection at the site. We then performed balloon angioplasty with 5.0 x 100 mm Lutonix drug-coated balloon. This expanded the vessel better.At the distal edge of popliteal artery, there was significant narrowing noted. We administered nitro that resolved narrowing that was secondary to spasm. Although there was residual stenosis with possible nonflow limiting dissection at site of popliteal artery, flow was significantly better and brisk. With improvement of the flow with intention of wound healing, we decided to not stent this area as patency of the stent will be low given location in heavily calcified popliteal artery.. Conclusions Totally occluded right popliteal artery that is heavily calcified. S/p successful revascularization with balloon angioplasty. Small sized dissection versus residual stenosis secondary to calcification noted in the popliteal artery. As flow has significantly improved and is in-line (previous occluded vessel and collateral) , and intention is wound healing , we did not place stent. Stent patency at popliteal artery location with the calcified vessel will be very low.. was treated with a Balloon, and Balloon. Right Mid-longitudinal Popliteal Artery was treated with two Balloon. Recommendations Antiplatelet therapy. Follow up with wound care. Outpatient cardiology follow up in 1 week. Pressures Phase:Rest AO : 145 / 58 ( 88 ) @ 10:12:00 AM 136 / 57 ( 86 ) @ 10:17:00 AM 140 / 56 ( 88 ) @ 10:28:00 AM Hemodynamic Data Phase:Rest AO : 145.0 / 58.0 ( 88.0 ) @ 10:12:00 AM 136.0 / 57.0 ( 86.0 ) @ 10:17:00 AM 140.0 / 56.0 ( 88.0 ) @ 10:28:00 AM Clinical Evaluation EBL: 5mL-10mL Procedural Details Procedure Consent Obtained. Admit Source: Out Patient. Pre-Procedure Time Out. Identified patient by full name and date of as verbalized by the patient/guarantor. Does the consent match the physician's order: Yes. Accurate & Complete Informed Consent: Yes. Inpatient/Outpatient History & Physical on Chart: Yes. If H&P is completed, is and addenduem needed: No; If yes, is the addendum complete: N/A. Visualize and Verify Site with Patient/Guarantor: N/A. Relevant Radiology Images available: Yes. The risks, benefits, and alternatives of sedation and/or procedure were discussed by physician. The patient agrees to continue. Procedure started. Correct patient, site and procedure confirmed by cath team. Current diagnosis: Critical limb ischemia. PERRLA. 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 Lungs diminished wheezes x 5 lobes. IV Site on Arrival: 20 gauge in the right anticubital. IV Fluids: 0.9% NaCl at 75ml/hr. 0 mL infused prior to cardiac cath tech. Pre Procedural Pulses: bilateral posterior tibial was Doppled. Pre Procedural Pulses: bilateral dorsalis pedis was Doppled. Oxygen started at 2liters/min via nasal canula. bilateral groins was prepped with chloroprep then draped in the usual sterile fashion. Physician notified. Baseline sample Acquired. HR: 73 BPM. Physician arrived. Physician scrubbed in. Time out performed with cath team. Lidocaine 1% infiltrated to the left groin. Arterial access obtained with micropuncture set. Lidocaine 1% infiltrated to the left groin. A 5Fr UF catheter in over wire. Abdominal aortogram performed in AP @ 10 mL/sec for a total of 30 mL. Glidewire in through UF catheter, glidewire parked in right SFA. Uf catheter out over glidewire. 6fr short sheath exchanged for 6fr 45cm flexor sheath over glidewire. DSA performed below right popliteal to better visualize distal vessels. DSA performed below right popliteal to better visualize distal vessels. Glidewire advanced to right popliteal. Seeker support catheter in over glidewire. Seeker catheter seated in the popliteal. Side port of sheath attached to Normal Saline flush at KVO to maintain patency. Glidewire out. Hand injection through seeker. Glidewire in through seeker catheter. Wire advanced to the peroneal artery. Seeker catheter out. Balloon and wire inserted to the popliteal. Inflation number : 1 A AB ARMADA 35 OTW [id number] was prepped and advanced across the Mid Popliteal, Right , then inflated to 8 TOY for 1:32 seconds. Balloon out over wire. Angiography performed, checking results. Balloon inserted over the wire to the popliteal. Inflation number : 2 A Lutonix DCB 5.0 X 100mm was prepped and advanced across the Mid Popliteal, Right , then inflated to 4 TOY for 1:30 seconds. Balloon out over wire. Angiography performed, checking results. Results checked with DSA. 6fr 45 cm flexor exchanged for 6fr short sheath over glidewire. ACT drawn. Results 316 seconds. Therapeutic limits - pre-heparin administration 90-150 seconds and monitoring heparin during a vascular procedure >250 seconds. Sheath injected in Left common femoral artery and runoff performed. A Suture was successful obtaining hemostatsis at the Left Femoral artery insertion site. Sheath(s) sutured into position with 2-0 silk and sterile 4x4's and Op-site applied over the site. No oozing or signs and symptoms of hematoma noted. Arterial sheath flushed and connected to tranducer and pressure bag with heparinized saline. Post Procedure: Pulses reassessed and unchanged. PERRLA. 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 No VTE prophylaxis required. Post-op diagnosis: Total occlussion of right popliteal artery. S/p revascularization with balloon angioplasty. Complications: None. Estimated blood loss: 5mL-10mL. Responsiveness - Normal response to verbal stimuli; alert and oriented, PERRLA. Airway - Unaffected, no intervention required; spontaneous ventilation. Circulation: W/N/L, pulses unchanged. Nausea/Vomiting: No. Total IV fluids: 60 mL. Medication's Wasted: Nitro = 49.6 mg. Medication's Wasted: Other = Fentanyl 50 mcg. Procedure completed. Patient transferred by bed to 1st floor. Vital chart was stopped. Access Site Site: Left Femoral artery Sheath Size: 6 Fr Hemostasis Method: Suture Hemostasis Success: Successful Procedure Medications Start: 10:02 AM Stop: 10:02 AM Medication: Versed 1 mg and Fentanyl 25 mcg Amount: 1 Route: I.V. Start: 10:27 AM Stop: 10:27 AM Medication: Heparin Amount: 5000 units Route: I.V. Start: 10:28 AM Stop: 10:28 AM Medication: Versed 1 mg and Fentanyl 25 mcg Amount: 1 Route: I.V. Start: 10:33 AM Stop: 10:33 AM Medication: Heparin Amount: 1000 units Route: I.V. Start: 10:45 AM Stop: 10:45 AM Medication: Nitrogylcerin Amount: 400 mcg Route: I.A. Start: 10:56 AM Stop: 10:56 AM Medication: Plavix Amount: 600 mg Route: P.O. I, the attending physician, have reviewed and verified all procedure medications. Yes, all medications given per verbal order History/Risk Factors Hypertension: No Dyslipidemia: No Peripheral Arterial Disease (PAD): No Myocardial Infarction (MO): No Obesity: No Renal Disease: No Tobacco Use: Current/Recent(w/in 1 year) Prior Interventions PCI: No CABG: No Valve Surgery: No Report Signatures Finalized by Eligio Archuleta MD on 10/20/2023 05:09 PM
[2023-10-10] MEDS: diphenhydrAMINE 50 mg Capsule PO (09:15)
[2023-10-10] MEDS: aspirin 325 mg Tablet PO (09:15)
[2023-10-10 09:38] LABS: Anion Gap 13.3 (5-19); Blood Urea Nitrogen 17 mg/dL (8-23); Calcium 9.7 mg/dL (8.5-10.5); Carbon Dioxide 32 mmol/L (22-29); Chloride 94 mmol/L (98-107); Glomerular Filtration Rate 49.4 mL/min (90-130); Glucose 114 mg/dL (65-115); Osmolality Calculated 284 mOsm/kg (285-295); Potassium 3.3 mmol/L (3.5-5.1); Sodium 136 mmol/L (136-145)
--- NOTE | 2023-10-10 09:54 | W.PM.OPSUD ---
Surgery/Procedure H&P Update DATE OF PROCEDURE: October 10, 2023 DATE H&P PERFORMED: 10/03/23 H&P UPDATE INFORMATION: I have reviewed H&P completed within last 30 days, I have examined patient prior to procedure and No changes to prior documentation PREOP DIAGNOSIS: Chronic limb threatening ischemia of right lower extremity PRIMARY INDICATION FOR PROCEDURE: Chronic limb threatening ischemia of right lower extremity PLANNED PROCEDURE: Operation Date: 10/10/23 10:00 Proposed Procedures p perip angiogram 34504,I73.9(Not Applicable) - Eligio Archuleta M.D Possible intervention PATIENT REASSESSED PRIOR TO SEDATION, WITH NO CHANGE NOTED: Yes PHYSICAL EXAM: alert, oriented x 3, clear to auscultation bilaterally and regular rate & rhythm AIRWAY EVAL/ANESTHESIA PLAN: normal airway, ASA III, Local Anesthesia, Risks, benefits & alternatives of sedation and/or procedure discussed and Patient agrees to continue as planned ADDITIONAL INFORMATION: Moderate sedation
[2023-10-10] MEDS: sodium chloride 0.9% 1,000 ML 75 ML IV (12:00)
[2023-10-10 13:39] LABS: Partial Thromboplastin Time 138.8 SECONDS (23.9-36.7)
[2023-10-10 15:43] LABS: Partial Thromboplastin Time 29.8 SECONDS (23.9-36.7)
[2023-10-10] MEDS: albuterol 2.5 mg/3 mL Neb INHALATION (15:51)
[2023-10-10] MEDS: fentaNYL 50 mcg/mL INJ 2mL 25 MCG IVP (16:06)
--- NOTE | 2023-10-10 21:11 | PC.NURSE ---
Patient called for nurse, bleeding was present at left groin from previous sheath pulled. Left leg and bed pad saturated with blood. Patient placed on continuous VS monitoring. Pressure held at site for twenty minutes. Site dressed with 4x4 and tegaderm. Area around site is soft, nontender, no hematoma or bleeding present. Educated patient on post sheath pull protocol. Bedrest, not moving leg, supporting site if coughing. Patient verbalized understanding.
[2023-10-11] VITALS (47 sets, daily range): BP systolic 99–132; BP diastolic 55–76; PULSE 82–113; RESP 15–34; TEMP 36.8–37.2; O2SAT 88–100
[2023-10-11] MEDS: ezetimibe 10 mg Tablet PO (09:15)
[2023-10-11] MEDS: montelukast sodium 10 mg Tablet PO (09:15)
[2023-10-11] MEDS: rivaroxaban 10 mg Tablet PO (09:15)
[2023-10-11] MEDS: aspirin 81 mg EC Tablet PO (09:15)
[2023-10-11] MEDS: albuterol 2.5 mg/3 mL Neb INHALATION (09:30)
--- NOTE | 2023-10-11 09:30 | PC.NURSE ---
called crisis therapist on pt's bmp results received telephone order to give 40 meq orally once. and he will update discharge meds.
[2023-10-11 10:00] LABS: Anion Gap 13.2 (5-19); Blood Urea Nitrogen 13 mg/dL (8-23); Calcium 9.1 mg/dL (8.5-10.5); Carbon Dioxide 29 mmol/L (22-29); Chloride 98 mmol/L (98-107); Glomerular Filtration Rate 49.4 mL/min (90-130); Glucose 153 mg/dL (65-115); Osmolality Calculated 287 mOsm/kg (285-295); Potassium 3.2 mmol/L (3.5-5.1); Sodium 137 mmol/L (136-145)
--- NOTE | 2023-10-11 10:40 | PM.DCS ---
Discharge Providers Date of Admission: 10/10/23 11:15 Date of Discharge: October 11, 2023 Attending Provider at Admission: Eligio Archuleta M.D Attending Provider at Discharge: Eligio Archuleta M.D Primary Care Provider: Jada Young NP Reason for Visit Reason for Visit: I73.9 Brief History: 67-year-old woman with past medical history of hyperlipidemia has nonhealing wounds on right foot. Also significant pain on rest. CTA showing total occlusion of the popliteal artery. Plan for peripheral angiogram with possible intervention. Hospital Course Hospital Course Peripheral angiogram confirmed total occlusion of right popliteal artery. She had successful revascularization with balloon angioplasty. Below the knee has two-vessel runoff. She was observed overnight and stayed stable. Renal function was also stable. Discharged home in a stable condition. Physical Exam Narrative: GENERAL: Patient is alert, awake and oriented x3. [] NECK: No jugular vein distension. [] HEENT: No cyanosis. No icterus. No pallor. [] HEART: Regular S1 and S2. No murmur, rub or gallop. [] LUNGS: Clear to auscultate bilaterally. [] CENTRAL NERVOUS SYSTEM: Grossly nonfocal. [] EXTREMITIES: Lower extremities with no edema. Lower extremities are warm. Dressing applied on the wound. Discharge Data Studies Completed and Pending Pending at discharge Category Date Time Status BUSINESS UNIT DIRECTOR request for service Routine Exams 10/10/23 09:00 Taken Laboratory Results APTT 29.8 SECONDS (23.9-36.7) D 10/10/23 15:12 Sodium 137 mmol/L (136-145) 10/11/23 08:58 Potassium 3.2 mmol/L (3.5-5.1) L 10/11/23 08:58 Chloride 98 mmol/L (98-107) 10/11/23 08:58 Carbon Dioxide 29 mmol/L (22-29) 10/11/23 08:58 Anion Gap 13.2 (5-19) 10/11/23 08:58 BUN 13 mg/dL (8-23) 10/11/23 08:58 Creatinine 1.1 mg/dL (0.5-0.9) H 10/11/23 08:58 GFR Calculation 49.4 mL/min (90-130) L 10/11/23 08:58 Glucose 153 mg/dL (65-115) H 10/11/23 08:58 Calculated Osmolality 287 mOsm/kg (285-295) 10/11/23 08:58 Calcium 9.1 mg/dL (8.5-10.5) 10/11/23 08:58 Vitals Last Vital Signs Temp 98.3 F 10/11/23 08:09 Pulse 87 10/11/23 09:40 Resp 20 H 10/11/23 09:40 BP 99/55 10/11/23 08:09 Pulse Ox 97 10/11/23 09:32 O2 Del Method Room Air 10/11/23 09:32 O2 Flow Rate 2 10/10/23 20:22 Discharge Plan Discharge Patient Disposition: Home Condition: Stable Prescriptions: New aspirin 81 mg Tablet,Delayed Release (Dr/Ec) 81 mg PO DAILY Qty: 90 3RF Xarelto 2.5 mg tablet 2.5 mg PO BID Qty: 120 1RF Continued acetaminophen [Tylenol Extra Strength] 500 mg tablet 500 mg PO .2 Q 6 hours PRN (Reason: Pain, Mild) montelukast 10 mg tablet 10 mg PO DAILY furosemide [Lasix] 40 mg tablet 40 mg PO DAILY Symbicort 160-4.5 mcg/actuation HFA aerosol inhaler 2 puff INHALATION BID cetirizine [Allergy Relief (cetirizine)] 10 mg tablet 10 mg PO DAILY albuterol sulfate [ProAir HFA] 90 mcg/actuation HFA aerosol inhaler 1 inh INHALATION .as needed famotidine 10 mg tablet 20 mg PO TID fluticasone propionate [Allergy Relief (fluticasone)] 50 mcg/actuation spray,suspension 1 spray INTRANASAL DAILY PRN (Reason: Allergy Symptoms) ezetimibe 10 mg tablet 10 mg PO DAILY tramadol 50 mg tablet 50 mg PO BID PRN (Reason: pain) Qty: 30 1RF ondansetron 4 mg tablet,disintegrating 4 mg PO Q6H PRN (Reason: nausea and vomiting) Qty: 14 0RF calcium carbonate 500 mg calcium (1,250 mg) Tablet,Chewable 500 mg PO DAILY PRN (Reason: antacid) Discharge Orders: Discharge Order (Routine); Ordered 10/11/23 Ordered By: Eligio Archuleta Referrals: Keisha Tolliver FNP [Nurse Practitioner] - 10/23/23 2:30 pm Discharge Diet: Cardiac Discharge Activity: Increase activity as tolerated Patient Instructions: Rivaroxaban (By mouth), Peripheral Vascular Angioplasty (DC), Opioid Safety, Post Angiogram Home Care Instructions Discharge Attestations Time Spent in Discharge Care*: less than 30 min Quality Metrics Clinical Quality Measures [ No reported AMI, CVA or VTE this stay] Coding Level of Care Code Acute Code for g Magali
[2023-10-11] MEDS: potassium chloride ER 20 mEq Tablet 40 MEQ PO (11:06)
--- NOTE | 2023-10-11 11:28 | PC.NURSE ---
called [facility] in [place] as pt's preferred pharmacy
== END 2023-10-11 11:51 | disposition home or self-care (01) ==
LOC: CCL 08:32 → CSU 11:17
PROVIDERS: PCP Nurse Practitioner Family; Visit Provider Internal Medicine
DX: I70.201 Unspecified atherosclerosis of native arteries of extremities, right leg (principal); E78.5 Hyperlipidemia, unspecified; S91.301A Unspecified open wound, right foot, initial encounter; X58.XXXA Exposure to other specified factors, initial encounter; F17.210 Nicotine dependence, cigarettes, uncomplicated
CPT/HCPCS: 36415; 37224; 75625; 75716; 80048; 85347; 85730; 94640; 96361; 96365; 99152; 99153; C1725; C1769; C1887; C1894; C2623; G0378; J1644; J2250; J3010; J3490; J7030; J7613; Q0163; Q9967

== ENCOUNTER → 2023-10-12 12:56 | Outpatient (BNVA) | payer MEDICARE, SELFPAY | PROVIDERS: PCP Nurse Practitioner Family; Visit Provider Thoracic Surgery (Cardiothoracic Vascular Surgery) | DX: I73.9 Peripheral vascular disease, unspecified (principal); L97.512 Non-pressure chronic ulcer of other part of right foot with fat layer exposed; L97.421 Non-pressure chronic ulcer of left heel and midfoot limited to breakdown of skin | CPT/HCPCS: 11042; 11045; 97597 ==

== ENCOUNTER → 2023-10-19 13:40 | Outpatient (BNVA) | payer MEDICARE, SELFPAY | PROVIDERS: PCP Nurse Practitioner Family; Visit Provider Thoracic Surgery (Cardiothoracic Vascular Surgery) | DX: I73.9 Peripheral vascular disease, unspecified (principal); L97.512 Non-pressure chronic ulcer of other part of right foot with fat layer exposed; L97.511 Non-pressure chronic ulcer of other part of right foot limited to breakdown of skin; L97.422 Non-pressure chronic ulcer of left heel and midfoot with fat layer exposed | CPT/HCPCS: 11042; 11045 ==

== ENCOUNTER → 2023-10-23 15:21 | Outpatient (BNVA) | payer MEDICARE, SELFPAY | PROVIDERS: PCP Nurse Practitioner Family; Visit Provider Nurse Practitioner Family | DX: I73.9 Peripheral vascular disease, unspecified (principal); Z79.899 Other long term (current) drug therapy | CPT/HCPCS: 36415; 80048; 99214 ==

== ENCOUNTER → 2023-10-25 09:17 | Outpatient (BNVA) | payer MEDICARE, SELFPAY | PROVIDERS: PCP Nurse Practitioner Family; Visit Provider Thoracic Surgery (Cardiothoracic Vascular Surgery) | DX: I73.9 Peripheral vascular disease, unspecified (principal); L97.422 Non-pressure chronic ulcer of left heel and midfoot with fat layer exposed; L97.511 Non-pressure chronic ulcer of other part of right foot limited to breakdown of skin | CPT/HCPCS: 97597; 97598; A6248 ==

== ENCOUNTER → 2023-10-26 12:15 | Outpatient (BNVA) | payer MEDICARE, SELFPAY | PROVIDERS: PCP Nurse Practitioner Family; Visit Provider Podiatrist Foot & Ankle Surgery | DX: I73.9 Peripheral vascular disease, unspecified; L97.514 Non-pressure chronic ulcer of other part of right foot with necrosis of bone | CPT/HCPCS: 73630; 99214 ==

== ENCOUNTER 2023-10-29 05:09 | Day surgery (SDC) | payer MEDICARE, SELFPAY ==
[2023-10-29] VITALS (10 sets, daily range): BP systolic 95–121; BP diastolic 54–72; PULSE 67–83; RESP 10–17; TEMP 36.2–36.5; O2SAT 97–99; BMI 31.2
--- NOTE | 2023-10-29 06:27 | W.PM.OPSUD ---
Surgery/Procedure H&P Update DATE OF PROCEDURE: October 29, 2023 DATE H&P PERFORMED: 10/26/23 H&P UPDATE INFORMATION: I have reviewed H&P completed within last 30 days, I have examined patient prior to procedure, No changes to prior documentation and H&P is in [facility] EMR on date indicated PLANNED PROCEDURE: Operation Date: 10/29/23 07:00 Proposed Procedures p Incision And Drainage Incision of Bone Cortex(Right) - Neil Urrutia DPM
--- NOTE | 2023-10-29 06:28 | P.OP_ITS ---
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 CPT code 93438 Implants: None Surgeon: Neil Urrutia DPM Production Associate: Meghna Estimated blood loss: 5 8 IV fluids: 200 Urine output: 0 Complications: None Brief History: Discussed incision debridement in OR vs. a BK amputation, patient is on the mindset that she would like to perform all efforts and treatments to prevent amputation at this time. Salvage efforts would include oral antibiotics, Betadine wet-to-dry, nonweightbearing, surgical debridement, will start with outpatient surgery. Patient informed that should she develop fever, chills, shortness of breath, chest pain, increased redness or acute signs of spreading of infection to the right foot that she is to report to the emergency department. X-ray right foot taken in clinic October 26, 2023 negative for soft tissue emphysema, negative for foreign body. Erosive changes at the first metatarsal phalangeal joint medially could represent infectious process. X-ray read per radiology is indicative of osteomyelitis at the medial aspect of the first metatarsal head and medial aspect of the proximal phalanx base. Patient wishes to proceed with surgical debridement. Risks include failure to control source of infection, ascending infection, sepsis, need for amputation of foot or leg, need for long-term antibiotic therapy and wound care. Procedure: Under mild sedation the patient was brought to the operating room and remained on the gurney in supine position. A timeout was performed. Anesthesia was then administered by the anesthesia service. Local anesthesia was injected by myself consisting of 30 cc of one-to-one mixture 1% lidocaine and 0.5% Marcaine plain and a right male block fashion. Well-padded pneumatic tourniquet was applied to the right ankle. Right lower extremity was scrubbed, prepped and draped utilizing normal aseptic technique. Right foot was elevated and tourniquet inflated to 250 mmHg. Attention was directed to the right foot where a wound at the great toe extending to the metatarsal phalangeal joint was appreciated. Wound extended down to bone at the medial aspect of the right first metatarsal phalangeal joint. Full-thickness incision with a #15 blade was performed down to bone cortex which was then incised and debrided of devitalized bone down to healthy bleeding bone. Adjacent wound sharply and excisionally debrided with a 15 blade and pickups. 1 L of saline utilized to irrigate the wound and incision. Postdebridement wound measurements measured 6.3 cm x 2.3 cm x 0.3 cm. No proximal lymphangitic streaking and no proximal cellulitis or periwound erythema appreciated. The incision was further irrigated with saline solution, stable eschar At the distal dorsal right hallux was left intact. The incision was then dressed with Betadine wet-to-dry utilizing sterile 4 x 4's, Kerlix and Robert wrap covered by a stockinette without compression. Tourniquet was deflated and a prompt hyperemic response was noted to the distal digits of the right foot. Of note patient had good bleeding with debridement intraoperatively. Postop shoe was applied. Patient was transferred to the PACU with vital signs stable and vascular status intact. Following a period of postoperative monitoring she will be discharged home is to continue oral antibiotic regimen as prescribed in clinic. Will follow-up Sunday next week, sooner should she experience complications.
[2023-10-29] MEDS: sodium chloride 0.9% 1,000 ML 30 ML IV (06:45)
[2023-10-29] MEDS: ceFAZolin 2,000 MG in sodium chloride 0.9% (plus) 50 ML 100 MG IV (07:03)
[2023-10-29] MEDS: lidocaine 1% INJ 10 mL (per mL) 15 ML INJECTION (07:33)
[2023-10-29] MEDS: BUPivacaine 0.5% INJ 30 mL INJECTION (07:33)
--- NOTE | 2023-10-29 09:34 | ANES.PREANE2 ---
Pre-Anesthetic Assessment Height/Weight: Height 1.52 m Weight 72.575 kg Temp Pulse Resp BP Pulse Ox O2 Del Method O2 Flow Rate 97.7 F 75 17 115/59 99 Nasal Cannula 2 10/29/23 08:40 10/29/23 08:40 10/29/23 08:40 10/29/23 08:40 10/29/23 08:40 10/29/23 08:40 10/29/23 08:40 Preop Diagnosis: Osteomyelitis right foot Operation Date: 10/29/23 07:00 Proposed Procedures p Incision And Drainage Incision of Bone Cortex(Right) - Neil Urrutia DPM Familial anesthetic complications: none Was Beta Tisha taken within 24 hours: N/A Was Clonidine taken within 24 hours: N/A Last intake: Intake Last Liquid Date 10/28/23 Last Liquid Time 21:30 Last Solid Date 10/28/23 Last Solid Time 21:30 Social Tobacco and No alcohol Exam alert, oriented x 3 and regular rate & rhythm Airway Submandibular: within normal limits Cervical ROM: within normal limits Mallampati: Class II Dentition: false Pulmonary Chronic Obstructive Pulmonary Disease Home O2 3L CV/HEM PADz GI Gastroesophageal Reflux Disease Metabolic Morbid Obesity Anesthetic Plan ASA status: 3 Anesthesia: Choice Medications/Allergies Home Medications Medication Instructions Recorded Confirmed Last Taken Type acetaminophen 500 mg tablet 500 mg PO .2 Q 6 hours PRN Pain, 11/10/19 10/29/23 10/27/23 History (Tylenol Extra Strength) Mild albuterol sulfate 90 mcg/actuation 1 inh inhalation .as needed PRN 11/10/19 10/29/23 10/28/23 14:00 History aerosol inhaler (ProAir HFA) Wheezing budesonide-formoterol HFA 160 2 puff inhalation BID 11/10/19 10/29/23 10/28/23 18:00 History mcg-4.5 mcg/actuation aerosol inhaler (Symbicort) cetirizine 10 mg tablet (Allergy 10 mg PO DAILY 11/10/19 10/29/23 10/28/23 09:00 History Relief (cetirizine)) furosemide 40 mg tablet (Lasix) 40 mg PO DAILY 11/10/19 10/29/23 10/28/23 09:00 History montelukast 10 mg tablet 10 mg PO DAILY 11/10/19 10/29/2310/28/24 18:00 History ezetimibe 10 mg tablet (Zetia) 10 mg PO DAILY 05/24/23 10/29/23 10/28/23 09:00 History calcium carbonate 500 mg calcium 500 mg PO DAILY PRN antacid 08/14/23 10/26/23 Unknown History (1,250 mg) chewable tablet tramadol 50 mg tablet 50 mg PO BID PRN pain #30 tabs 09/18/23 10/29/23 Unknown Rx famotidine 10 mg tablet 20 mg PO TID gerd 09/27/23 10/29/23 10/25/23 History fluticasone propionate 50 1 spray intranasal DAILY PRN 09/27/23 10/29/23 Unknown History mcg/actuation nasal Allergy Symptoms spray,suspension (Allergy Relief (fluticasone)) aspirin 81 mg tablet,delayed 81 mg PO DAILY #90 tabs 10/11/23 10/29/23 10/28/23 18:00 Rx release potassium chloride 10 mEq 10 meq PO DAILY #90 tabs 10/11/23 10/29/23 10/28/23 18:00 Rx tablet,extended release rivaroxaban 2.5 mg tablet (Xarelto) 2.5 mg PO BID #120 tabs 10/11/23 10/29/23 10/28/23 18:00 Rx ciprofloxacin HCl 500 mg tablet 500 mg PO BID 7 days #14 tabs 10/26/23 10/29/23 10/28/23 18:00 Rx (Cipro) clindamycin HCl 300 mg capsule 300 mg PO TID 7 days #21 caps 10/26/23 10/29/23 10/28/23 12:00 Rx Allergies Allergy/AdvReac Type Severity Reaction Status Date / Time alendronate sodium Allergy contraindicated Verified 10/29/23 06:04 [From Fosamax] with esophagus stricture omeprazole Allergy nausea Verified 10/29/23 06:04 pantoprazole [From Protonix] Allergy shakes Verified 10/29/23 06:04 Sulfa (Sulfonamide Allergy Unknown Verified 10/29/23 06:04 Antibiotics) sulfamethoxazole Allergy nausea/upset Verified 10/29/23 06:04 [From Bactrim] stomach/vomitting trimethoprim [From Bactrim] Allergy nausea/upset Verified 10/29/23 06:04 stomach/vomitting PFSH Anesthesia Family History Sister Cancer breast Chronic obstructive lung disease Diabetes Pulmonary emphysema Brother Cancer Diabetes Mother Chronic obstructive lung disease Pulmonary emphysema Social History Smoking and tobacco/nicotine status: current every day tobacco/nicotine user cigarettes Packs smoked per day: 1 Years cigarettes smoked: 61 [ Other cigarette details: 1 ppd] Alcohol intake: never Substance/Drug Use: never Lives independently: Yes Pets and animals: Yes Pets & animals: cat(s) and dog(s) Data Anesthesia Cardiac Studies: No Data to Display
--- NOTE | 2023-10-29 16:18 | ANE.PACU2 ---
Inpatient post-anesthesia follow up: Airway intact: Yes Vital signs: Temperature 97.7 F Pulse Rate 75 Respiratory Rate 17 Blood Pressure 115/59 Pulse Oximetry 99 Oxygen Delivery Me thod Nasal Cannula Oxygen Flow Rate 2 Fraction of Inspir ed Oxygen Hydration adequate: Yes Nausea and vomiting: No Pain level: 1 Mental status: Baseline
== END 2023-10-29 09:03 | disposition home or self-care (01) ==
PROVIDERS: PCP Nurse Practitioner Family; Visit Provider Podiatrist Foot & Ankle Surgery
PROC: (CPT 28005; principal; 2023-10-29 07:00)
DX: M86.8X7 Other osteomyelitis, ankle and foot (principal); L97.514 Non-pressure chronic ulcer of other part of right foot with necrosis of bone; J44.9 Chronic obstructive pulmonary disease, unspecified; Z99.81 Dependence on supplemental oxygen; K21.9 Gastro-esophageal reflux disease without esophagitis; E66.01 Morbid (severe) obesity due to excess calories; Z68.31 Body mass index [BMI] 31.0-31.9, adult; Z79.82 Long term (current) use of aspirin; F17.210 Nicotine dependence, cigarettes, uncomplicated; I73.9 Peripheral vascular disease, unspecified
CPT/HCPCS: 28005; J0330; J0690; J1100; J1200; J2371; J2405; J2704; J3010; J3490; J7030

== ENCOUNTER → 2023-11-02 12:31 | Outpatient (BNVA) | payer MEDICARE, SELFPAY | PROVIDERS: PCP Nurse Practitioner Family; Visit Provider Podiatrist Foot & Ankle Surgery | DX: L97.514 Non-pressure chronic ulcer of other part of right foot with necrosis of bone (principal) | CPT/HCPCS: 87070; 87075; 87205; 99213 ==

== ENCOUNTER → 2023-11-09 11:27 | Outpatient (BNVA) | payer MEDICARE, SELFPAY | PROVIDERS: PCP Nurse Practitioner Family; Visit Provider Podiatrist Foot & Ankle Surgery | DX: I73.9 Peripheral vascular disease, unspecified (principal); L97.514 Non-pressure chronic ulcer of other part of right foot with necrosis of bone | CPT/HCPCS: 99213 ==

== ENCOUNTER → 2023-11-15 10:21 | Outpatient (BNVA) | payer MEDICARE, SELFPAY | PROVIDERS: PCP Nurse Practitioner Family; Visit Provider Podiatrist Foot & Ankle Surgery | DX: Z98.890 Other specified postprocedural states (principal); I73.9 Peripheral vascular disease, unspecified; L97.514 Non-pressure chronic ulcer of other part of right foot with necrosis of bone | CPT/HCPCS: 99213 ==

== ENCOUNTER → 2023-11-22 13:02 | Outpatient (BNVA) | payer MEDICARE, SELFPAY | PROVIDERS: PCP Nurse Practitioner Family; Visit Provider Podiatrist Foot & Ankle Surgery | DX: I73.9 Peripheral vascular disease, unspecified (principal); L97.514 Non-pressure chronic ulcer of other part of right foot with necrosis of bone | CPT/HCPCS: 99024; 99213 ==

== ENCOUNTER → 2023-12-04 14:30 | Outpatient (BNVA) | payer MEDICARE, SELFPAY | PROVIDERS: PCP Nurse Practitioner Family; Visit Provider Internal Medicine Pulmonary Disease | DX: R06.02 Shortness of breath (principal); J43.9 Emphysema, unspecified; I73.9 Peripheral vascular disease, unspecified; Z71.6 Tobacco abuse counseling; Z12.2 Encounter for screening for malignant neoplasm of respiratory organs; J44.9 Chronic obstructive pulmonary disease, unspecified; F17.210 Nicotine dependence, cigarettes, uncomplicated | CPT/HCPCS: 99204 ==

== ENCOUNTER → 2023-12-05 11:01 | Outpatient (BNVA) | payer MEDICARE, SELFPAY | PROVIDERS: PCP Nurse Practitioner Family; Visit Provider Podiatrist Foot & Ankle Surgery | DX: I73.9 Peripheral vascular disease, unspecified (principal); L97.514 Non-pressure chronic ulcer of other part of right foot with necrosis of bone | CPT/HCPCS: 99213 ==

== ENCOUNTER → 2023-12-19 09:58 | Outpatient (BNVA) | payer MEDICARE, SELFPAY | PROVIDERS: PCP Nurse Practitioner Family; Visit Provider Podiatrist Foot & Ankle Surgery | DX: I73.9 Peripheral vascular disease, unspecified (principal); L97.514 Non-pressure chronic ulcer of other part of right foot with necrosis of bone | CPT/HCPCS: 99213 ==

== ENCOUNTER 2023-12-20 12:30 | Outpatient (CLI) | payer MEDICARE, SELFPAY ==
[2023-12-20 12:59] VITALS: PULSE 93; RESP 18; O2SAT 98
[2023-12-20] MEDS: albuterol 2.5 mg/3 mL Neb INHALATION (12:59)
[2023-12-20 13:03] VITALS: PULSE 95
== END 2023-12-20 12:31 | disposition home or self-care (01) ==
LOC: RT 12:31
PROVIDERS: PCP Nurse Practitioner Family; Visit Provider Internal Medicine Pulmonary Disease
DX: R06.02 Shortness of breath (principal)
CPT/HCPCS: 94060; 94618; 94726; 94729; J7613

== ENCOUNTER → 2023-12-26 12:08 | Outpatient (BNVA) | payer MEDICARE, SELFPAY | PROVIDERS: PCP Nurse Practitioner Family; Visit Provider Internal Medicine | DX: I73.9 Peripheral vascular disease, unspecified (principal); F17.210 Nicotine dependence, cigarettes, uncomplicated | CPT/HCPCS: 99214 ==

== ENCOUNTER → 2024-01-03 13:40 | Outpatient (BNVA) | payer MEDICARE, SELFPAY | PROVIDERS: PCP Nurse Practitioner Family; Visit Provider Podiatrist Foot & Ankle Surgery | DX: I73.9 Peripheral vascular disease, unspecified (principal); L97.514 Non-pressure chronic ulcer of other part of right foot with necrosis of bone | CPT/HCPCS: 99213 ==

== ENCOUNTER → 2024-01-17 10:45 | Outpatient (BNVA) | payer MEDICARE, SELFPAY | PROVIDERS: PCP Nurse Practitioner Family; Visit Provider Podiatrist Foot & Ankle Surgery | DX: I73.9 Peripheral vascular disease, unspecified (principal); L97.514 Non-pressure chronic ulcer of other part of right foot with necrosis of bone | CPT/HCPCS: 99213 ==

== ENCOUNTER → 2024-02-07 11:08 | Outpatient (BNVA) | payer MEDICARE, SELFPAY | PROVIDERS: PCP Nurse Practitioner Family; Visit Provider Podiatrist Foot & Ankle Surgery | DX: Z98.890 Other specified postprocedural states (principal); I73.9 Peripheral vascular disease, unspecified; L97.514 Non-pressure chronic ulcer of other part of right foot with necrosis of bone | CPT/HCPCS: 99213 ==

== ENCOUNTER → 2024-02-20 11:20 | Outpatient (BNVA) | payer MEDICARE, SELFPAY | PROVIDERS: PCP Nurse Practitioner Family; Visit Provider Internal Medicine | DX: E05.90 Thyrotoxicosis, unspecified without thyrotoxic crisis or storm (principal); K21.9 Gastro-esophageal reflux disease without esophagitis | CPT/HCPCS: 36415; 83516; 84439; 84443; 84480; 86376; 86800; 99204 ==

== ENCOUNTER → 2024-03-03 11:14 | Outpatient (BNVA) | payer MEDICARE, SELFPAY | PROVIDERS: PCP Nurse Practitioner Family; Visit Provider Podiatrist Foot & Ankle Surgery | DX: Z98.890 Other specified postprocedural states (principal); I73.9 Peripheral vascular disease, unspecified; L97.514 Non-pressure chronic ulcer of other part of right foot with necrosis of bone | CPT/HCPCS: 99213 ==

== ENCOUNTER → 2024-04-07 10:24 | Outpatient (BNVA) | payer MEDICARE, SELFPAY | PROVIDERS: PCP Nurse Practitioner Family; Visit Provider Podiatrist Foot & Ankle Surgery | DX: Z98.890 Other specified postprocedural states (principal); I73.9 Peripheral vascular disease, unspecified; L97.514 Non-pressure chronic ulcer of other part of right foot with necrosis of bone | CPT/HCPCS: 99213 ==

== ENCOUNTER → 2024-05-06 13:45 | Outpatient (BNVA) | payer MEDICARE, SELFPAY | PROVIDERS: PCP Nurse Practitioner Family; Visit Provider Podiatrist Foot & Ankle Surgery | DX: I73.9 Peripheral vascular disease, unspecified (principal); L97.514 Non-pressure chronic ulcer of other part of right foot with necrosis of bone; Z98.890 Other specified postprocedural states; E05.90 Thyrotoxicosis, unspecified without thyrotoxic crisis or storm; K21.9 Gastro-esophageal reflux disease without esophagitis; R63.4 Abnormal weight loss; Z68.24 Body mass index [BMI] 24.0-24.9, adult | CPT/HCPCS: 99213; 99214 ==

== ENCOUNTER 2024-06-13 11:27 | Outpatient (CLI) | payer MEDICARE, SELFPAY ==
--- NOTE | 2024-06-13 11:45 | US_ITS ---
WS: [id number] THYROID ULTRASOUND HISTORY: r/o nodule COMPARISON: None available. Right lobe: 1.6 cm x 1.8 cm x 4.3 cm (w x ap x l). Volume: 6.1 cm3. Normal sized gland. There is a small spongiform nodule which is subcentimeter superior pole RIGHT thy roid. No solid nodule. No echogenic foci. Left lobe: 1.3 cm x 1.6 cm x 4.4 cm (w x ap x l). Volume: 4.5 cm3. Solid isoechoic mass with cystic component inferior pole measures 1.6 x 0.9 x 2.1 cm. There are few a dditional smaller colloid cyst. No echogenic foci. Isthmus: 0.2 cm. US/US thyroid [id number] IMPRESSION: TI-RADS 3: Nodule lower pole LEFT thyroid. Mildly suspicious. Recommend yearly follow-up ultrasound evaluation in 1, 3 and 5 years based upon TI-RADS recommen dations.
== END 2024-06-13 11:28 | disposition home or self-care (01) ==
LOC: RAD 11:28
PROVIDERS: PCP Nurse Practitioner Family; Visit Provider Internal Medicine
DX: E05.90 Thyrotoxicosis, unspecified without thyrotoxic crisis or storm (principal); E04.1 Nontoxic single thyroid nodule
CPT/HCPCS: 76536

== ENCOUNTER → 2024-06-17 14:48 | Outpatient (BNVA) | payer MEDICARE, SELFPAY | PROVIDERS: PCP Nurse Practitioner Family; Visit Provider Podiatrist Foot & Ankle Surgery | DX: I73.9 Peripheral vascular disease, unspecified (principal); L97.514 Non-pressure chronic ulcer of other part of right foot with necrosis of bone | CPT/HCPCS: 99213 ==

== ENCOUNTER → 2024-06-25 10:17 | Outpatient (BNVA) | payer MEDICARE, SELFPAY | PROVIDERS: PCP Nurse Practitioner Family; Visit Provider Internal Medicine | DX: E05.90 Thyrotoxicosis, unspecified without thyrotoxic crisis or storm (principal) | CPT/HCPCS: 84439; 84443; 84480 ==

== ENCOUNTER → 2024-06-27 09:35 | Outpatient (BNVA) | payer MEDICARE, SELFPAY | PROVIDERS: PCP Nurse Practitioner Family; Visit Provider Internal Medicine | DX: E05.90 Thyrotoxicosis, unspecified without thyrotoxic crisis or storm (principal); K21.9 Gastro-esophageal reflux disease without esophagitis; R63.4 Abnormal weight loss; E04.1 Nontoxic single thyroid nodule; Z68.25 Body mass index [BMI] 25.0-25.9, adult | CPT/HCPCS: 99214 ==

== ENCOUNTER → 2024-07-28 10:35 | Outpatient (BNVA) | payer MEDICARE, SELFPAY | PROVIDERS: PCP Nurse Practitioner Family; Visit Provider Podiatrist Foot & Ankle Surgery | DX: L97.514 Non-pressure chronic ulcer of other part of right foot with necrosis of bone (principal); I73.9 Peripheral vascular disease, unspecified | CPT/HCPCS: 99213 ==

== ENCOUNTER 2024-08-13 10:00 | Oncology outpatient (recurring) (ONCR) | payer MEDICARE, SELFPAY ==
[2024-07-30 12:26] LABS: Basophils # 0.1 10^3/uL (0.0-0.1); Basophils % 0.6 %; Eosinophils # 0.1 10^3/uL (0.0-0.8); Eosinophils % 1.6 %; Hematocrit 28.4 % (36-47); Lymphocytes # 1.9 10^3/uL (0.8-4.8); Lymphocytes % 22.1 %; Mean Corpuscular HGB Conc 30.3 g/dL (30-55); Mean Corpuscular Hemoglobin 26.1 pg (27-33); Mean Corpuscular Volume 86.3 fl (85-98); Mean Platelet Volume 8.6 fL (7.4-10.4); Monocytes # 0.6 10^3/uL (0.2-0.9); Monocytes % 6.5 %; Neutrophils # 6.07 10^3/uL (1.8-7.7); Nucleated Red Blood Cells % 0 %; Platelet Count 478 10^3/cmm (157-399); Red Blood Count 3.29 10^6/uL (3.85-5.65); Red Cell Distribution Width 16.5 % (12.1-15.1); White Blood Count 8.79 10^3/uL (3.29-11.43)
[2024-07-30 12:29] LABS: Reticulocyte % 1.8 % (0.5-2.0)
[2024-07-30 12:51] LABS: Alanine Aminotransferase 7 U/L (0-33); Albumin Level 3.6 g/dL (3.5-5.2); Alkaline Phosphatase 172 U/L (35-105); Anion Gap 13.2 (5-19); Aspartate Amino Transferase 10 U/L (0-32); Blood Urea Nitrogen 12 mg/dL (8-23); Calcium 8.5 mg/dL (8.5-10.5); Carbon Dioxide 25 mmol/L (22-29); Chloride 106 mmol/L (98-107); Creatinine Clr Calc Pharmacy 48.2372; Ferritin 9 ng/mL (15-150); Globulin 2.5 g/dL (1.3-4.6); Glomerular Filtration Rate 62.1 mL/min (90-130); Glucose 128 mg/dL (65-115); Iron 16 ug/dL (37-145); Lactate Dehydrogenase 154 U/L (135-214); Osmolality Calculated 291 mOsm/kg (285-295); Percent Saturation 4.8 % (20-50); Potassium 4.2 mmol/L (3.5-5.1); Sodium 140 mmol/L (136-145); Total Bilirubin 0.2 mg/dL (0.15-1.2); Total Iron Binding Capacity 332 mcg/dl; Total Protein 6.1 g/dL (6.6-8.7); Unsaturated Iron Binding 316 ug/dL (112-347)
[2024-07-30 13:06] LABS: Vitamin B12 241 pg/mL (232-1245)
[2024-07-30 13:16] LABS: Folate Level 2.6 ng/mL (4.8-37.3)
[2024-07-30] MEDS: cyanocobalamin 1,000 mcg/mL SDV 1000 MCG IM (14:00)
[2024-08-04 08:14] LABS: Methylmalonic Acid 276 nmol/L (69-390)
[2024-08-06 09:55] VITALS: BP 146/71; PULSE 78; RESP 16; TEMP 36.4; O2SAT 94
[2024-08-06] MEDS: sodium chloride 0.9% 250 ML 100 ML IV (10:17)
[2024-08-06] MEDS: iron sucrose 200 MG in sodium chloride 0.9% (100 ml) 100 ML 220 MG IV (10:17)
[2024-08-06] MEDS: cyanocobalamin 1,000 mcg/mL SDV 1000 MCG IM (11:17)
[2024-08-06 12:00] VITALS: BP 147/81; PULSE 66; RESP 16; TEMP 36.3; O2SAT 95
[2024-08-06 13:11] LABS: Soluble Transferrin Receptor 2.58 mg/L (0.76-1.76)
[2024-08-13 10:04] VITALS: BP 141/62; PULSE 74; RESP 16; TEMP 36.2; O2SAT 99
[2024-08-13] MEDS: iron sucrose 200 MG in sodium chloride 0.9% (100 ml) 100 ML 220 MG IV (10:26)
[2024-08-13] MEDS: cyanocobalamin 1,000 mcg/mL SDV 1000 MCG IM (10:32)
[2024-08-13 11:20] VITALS: BP 148/74; PULSE 78; RESP 18; TEMP 36.6; O2SAT 97
== END 2024-08-16 23:59 | disposition home or self-care (01) ==
PROVIDERS: PCP Nurse Practitioner Family; Visit Provider Internal Medicine Hematology & Oncology
DX: Z53.9 Procedure and treatment not carried out, unspecified reason (principal); Z79.899 Other long term (current) drug therapy; D51.3 Other dietary vitamin B12 deficiency anemia
CPT/HCPCS: 36415; 80053; 82607; 82728; 82746; 83010; 83540; 83550; 83615; 83921; 84238; 85025; 85045; 96365; 96372; 99204; J1756; J3420; J7050

== ENCOUNTER 2024-08-19 09:20 | Outpatient (CLI) | payer MEDICARE, SELFPAY ==
--- NOTE | 2024-08-19 09:20 | MM_ITS ---
WS: [id number] BILATERAL 3D TOMOSYNTHESIS DIGITAL SCREENING MAMMOGRAPHY WITH CAD CLINICAL INFORMATION: SCREENING HISTORY: Screening mammogram. No current complaints. COMPARISON: 2012 TECHNIQUE: Bilateral CC and MLO views. FINDINGS: Scattered fibroglandular densities bilaterally. No suspicious focal mass, asymmetry, calcifications, or architectural distortion. No evidence of malignancy. Vascular calcifications. Incidental punctate and clustered calcifications. MM/MM scr tomosynthesis [id number] IMPRESSION: DENSITY: There are scattered areas of fibroglandular density. BI-RADS: 2 - Benign. FOLLOW UP: 1 Year Follow-up Recommend return to annual screening mammography.
== END 2024-08-19 09:21 | disposition home or self-care (01) ==
LOC: MOBLMAM 09:27
PROVIDERS: PCP Nurse Practitioner Family; Visit Provider Nurse Practitioner Family
DX: Z12.31 Encounter for screening mammogram for malignant neoplasm of breast (principal); R92.323 Mammographic fibroglandular density, bilateral breasts; R92.1 Mammographic calcification found on diagnostic imaging of breast
CPT/HCPCS: 77063; 77067

== ENCOUNTER 2024-09-03 10:00 | Oncology outpatient (recurring) (ONCR) | payer MEDICARE, SELFPAY ==
[2024-08-20 09:40] VITALS: BP 157/68; PULSE 85; RESP 16; TEMP 36.2; O2SAT 98
[2024-08-20] MEDS: iron sucrose 200 MG in sodium chloride 0.9% (100 ml) 100 ML 220 MG IV (09:48)
[2024-08-20] MEDS: cyanocobalamin 1,000 mcg/mL SDV 1000 MCG IM (10:25)
[2024-08-20 10:33] VITALS: BP 145/63; PULSE 76; RESP 17; TEMP 35.9; O2SAT 96
[2024-08-27 09:40] VITALS: BP 127/63; PULSE 80; RESP 16; TEMP 36.4; O2SAT 98
[2024-08-27] MEDS: iron sucrose 200 MG in sodium chloride 0.9% (100 ml) 100 ML 220 MG IV (09:57)
[2024-08-27 10:43] VITALS: BP 138/69; PULSE 72; RESP 18; TEMP 36.6; O2SAT 94
[2024-09-03 09:55] VITALS: BP 153/94; PULSE 76; RESP 16; TEMP 36.6; O2SAT 97
[2024-09-03] MEDS: iron sucrose 200 MG in sodium chloride 0.9% (100 ml) 100 ML 220 MG IV (09:58)
== END 2024-09-16 23:59 | disposition home or self-care (01) ==
PROVIDERS: PCP Nurse Practitioner Family; Visit Provider Internal Medicine Medical Oncology
DX: Z53.9 Procedure and treatment not carried out, unspecified reason (principal); D51.9 Vitamin B12 deficiency anemia, unspecified; Z79.899 Other long term (current) drug therapy
CPT/HCPCS: 96365; 96372; J1756; J3420

== ENCOUNTER 2024-09-24 09:58 | Oncology outpatient (recurring) (ONCR) | payer MEDICARE, SELFPAY ==
[2024-09-24 10:24] LABS: Basophils % 0.4 %; Eosinophils # 0.1 10^3/uL (0.0-0.8); Eosinophils % 1.4 %; Hematocrit 34.2 % (36-47); Lymphocytes # 1.8 10^3/uL (0.8-4.8); Lymphocytes % 18.8 %; Mean Corpuscular HGB Conc 30.4 g/dL (30-55); Mean Corpuscular Hemoglobin 27.8 pg (27-33); Mean Corpuscular Volume 91.4 fl (85-98); Mean Platelet Volume 8.7 fL (7.4-10.4); Monocytes # 0.7 10^3/uL (0.2-0.9); Monocytes % 7.9 %; Neutrophils # 6.62 10^3/uL (1.8-7.7); Nucleated Red Blood Cells % 0 %; Platelet Count 348 10^3/cmm (157-399); Red Blood Count 3.74 10^6/uL (3.85-5.65); Red Cell Distribution Width 21.7 % (12.1-15.1); White Blood Count 9.33 10^3/uL (3.29-11.43)
[2024-09-24 10:28] LABS: Reticulocyte % 1.6 % (0.5-2.0)
[2024-09-24 10:40] LABS: Alanine Aminotransferase 20 U/L (0-33); Albumin Level 3.7 g/dL (3.5-5.2); Alkaline Phosphatase 149 U/L (35-105); Anion Gap 13.8 (5-19); Aspartate Amino Transferase 13 U/L (0-32); Blood Urea Nitrogen 12 mg/dL (8-23); Calcium 9.6 mg/dL (8.5-10.5); Carbon Dioxide 25 mmol/L (22-29); Chloride 104 mmol/L (98-107); Creatinine Clr Calc Pharmacy 54.2668; Ferritin 99 ng/mL (15-150); Globulin 2.6 g/dL (1.3-4.6); Glomerular Filtration Rate 71.1 mL/min (90-130); Glucose 104 mg/dL (65-115); Iron 39 ug/dL (37-145); Lactate Dehydrogenase 141 U/L (135-214); Osmolality Calculated 288 mOsm/kg (285-295); Percent Saturation 16.4 % (20-50); Potassium 3.8 mmol/L (3.5-5.1); Sodium 139 mmol/L (136-145); Total Bilirubin 0.2 mg/dL (0.15-1.2); Total Iron Binding Capacity 237 mcg/dl; Total Protein 6.3 g/dL (6.6-8.7); Unsaturated Iron Binding 198 ug/dL (112-347)
[2024-09-24 10:56] LABS: Vitamin B12 365 pg/mL (232-1245)
[2024-09-24 11:06] LABS: Folate Level > 20.0 ng/mL (4.8-37.3)
[2024-09-29 01:20] LABS: Methylmalonic Acid 230 nmol/L (69-390)
[2024-09-29 14:40] LABS: Soluble Transferrin Receptor 1.61 mg/L (0.76-1.76)
== END 2024-10-17 23:59 | disposition home or self-care (01) ==
PROVIDERS: Internal Medicine Hematology & Oncology; PCP Nurse Practitioner Family; Visit Provider Internal Medicine
DX: D51.9 Vitamin B12 deficiency anemia, unspecified (principal); D50.9 Iron deficiency anemia, unspecified; Z79.899 Other long term (current) drug therapy
CPT/HCPCS: 36415; 80053; 82607; 82728; 82746; 83010; 83540; 83550; 83615; 83921; 84238; 85025; 85045; 99214

== ENCOUNTER 2024-11-11 09:51 | Oncology outpatient (recurring) (ONCR) | payer MEDICARE, SELFPAY ==
[2024-11-11 10:32] LABS: Basophils % 0.1 %; Eosinophils % 0.1 %; Hematocrit 28.4 % (36-47); Lymphocytes # 0.9 10^3/uL (0.8-4.8); Lymphocytes % 5.8 %; Mean Corpuscular Hemoglobin 28.2 pg (27-33); Mean Platelet Volume 8.3 fL (7.4-10.4); Monocytes # 0.8 10^3/uL (0.2-0.9); Monocytes % 5.3 %; Neutrophils # 13.56 10^3/uL (1.8-7.7); Neutrophils % 87.9 %; Nucleated Red Blood Cells % 0 %; Platelet Count 459 10^3/cmm (157-399); Red Blood Count 3.12 10^6/uL (3.85-5.65); Red Cell Distribution Width 17.9 % (12.1-15.1); White Blood Count 15.44 10^3/uL (3.29-11.43)
[2024-11-11 10:47] LABS: Alanine Aminotransferase 17 U/L (0-33); Albumin Level 3.4 g/dL (3.5-5.2); Alkaline Phosphatase 126 U/L (35-105); Anion Gap 15.2 (5-19); Aspartate Amino Transferase 10 U/L (0-32); Blood Urea Nitrogen 23 mg/dL (8-23); Calcium 9.2 mg/dL (8.5-10.5); Carbon Dioxide 26 mmol/L (22-29); Chloride 102 mmol/L (98-107); Globulin 2.5 g/dL (1.3-4.6); Glucose 178 mg/dL (65-115); Osmolality Calculated 296 mOsm/kg (285-295); Potassium 4.2 mmol/L (3.5-5.1); Sodium 139 mmol/L (136-145); Total Bilirubin 0.2 mg/dL (0.15-1.2); Total Protein 5.9 g/dL (6.6-8.7)
[2024-11-11 11:51] LABS: Folate Level > 20.0 ng/mL (4.8-37.3)
[2024-11-11 11:59] LABS: Ferritin 16 ng/mL (15-150); Iron 17 ug/dL (37-145); Percent Saturation 5.3 % (20-50); Total Iron Binding Capacity 318 mcg/dl; Unsaturated Iron Binding 301 ug/dL (112-347)
[2024-11-11 12:15] LABS: Vitamin B12 244 pg/mL (232-1245)
== END 2024-11-14 23:59 | disposition home or self-care (01) ==
PROVIDERS: Nurse Practitioner; PCP Nurse Practitioner Family; Visit Provider Internal Medicine
DX: D50.9 Iron deficiency anemia, unspecified (principal); I73.9 Peripheral vascular disease, unspecified; D51.8 Other vitamin B12 deficiency anemias; K21.00 Gastro-esophageal reflux disease with esophagitis, without bleeding; F17.200 Nicotine dependence, unspecified, uncomplicated; Z71.6 Tobacco abuse counseling; Z79.899 Other long term (current) drug therapy
CPT/HCPCS: 36415; 80053; 82607; 82728; 82746; 83540; 83550; 85025; 99213; 99214

== ENCOUNTER 2024-11-18 09:41 | Oncology outpatient (recurring) (ONCR) | payer MEDICARE, SELFPAY ==
[2024-11-18] MEDS: ferric derisomaltose 1,000 MG in sodium chloride 0.9% (100 ml) 100 ML 330 MG IV (10:25)
[2024-11-18] MEDS: cyanocobalamin 1,000 mcg/mL SDV 1000 MCG IM (11:10)
[2024-11-18 11:14] VITALS: BP 116/72; PULSE 86; RESP 17; TEMP 36.6; O2SAT 94
== END 2024-12-15 23:59 | disposition home or self-care (01) ==
LOC: ONCMED 09:41
PROVIDERS: PCP Nurse Practitioner Family; Visit Provider Internal Medicine Medical Oncology
DX: D51.9 Vitamin B12 deficiency anemia, unspecified (principal); D50.9 Iron deficiency anemia, unspecified; Z79.899 Other long term (current) drug therapy; Z53.9 Procedure and treatment not carried out, unspecified reason
CPT/HCPCS: 96365; 96372; J1437; J3420

== ENCOUNTER 2024-12-18 12:27 | Oncology outpatient (recurring) (ONCR) | payer MEDICARE, SELFPAY ==
[2024-12-18 13:13] LABS: Basophils % 0.3 %; Eosinophils # 0.1 10^3/uL (0.0-0.8); Eosinophils % 1.1 %; Hematocrit 36.6 % (36-47); Lymphocytes # 1.7 10^3/uL (0.8-4.8); Lymphocytes % 16.2 %; Mean Corpuscular HGB Conc 31.1 g/dL (30-55); Mean Corpuscular Hemoglobin 30.2 pg (27-33); Mean Corpuscular Volume 97.1 fl (85-98); Mean Platelet Volume 8.3 fL (7.4-10.4); Monocytes # 0.6 10^3/uL (0.2-0.9); Monocytes % 6.1 %; Neutrophils # 7.99 10^3/uL (1.8-7.7); Neutrophils % 75.9 %; Nucleated Red Blood Cells % 0 %; Platelet Count 365 10^3/cmm (157-399); Red Blood Count 3.77 10^6/uL (3.85-5.65); Red Cell Distribution Width 20.8 % (12.1-15.1); White Blood Count 10.52 10^3/uL (3.29-11.43)
[2024-12-18 13:34] LABS: Alanine Aminotransferase 17 U/L (0-33); Albumin Level 3.7 g/dL (3.5-5.2); Alkaline Phosphatase 131 U/L (35-105); Aspartate Amino Transferase 12 U/L (0-32); Blood Urea Nitrogen 13 mg/dL (8-23); Calcium 9.8 mg/dL (8.5-10.5); Carbon Dioxide 25 mmol/L (22-29); Chloride 102 mmol/L (98-107); Creatinine Clr Calc Pharmacy 47.0579; Ferritin 129 ng/mL (15-150); Globulin 2.6 g/dL (1.3-4.6); Glomerular Filtration Rate 61.9 mL/min (90-130); Glucose 133 mg/dL (65-115); Osmolality Calculated 286 mOsm/kg (285-295); Sodium 137 mmol/L (136-145); Total Bilirubin 0.2 mg/dL (0.15-1.2); Total Protein 6.3 g/dL (6.6-8.7)
[2024-12-18 13:39] LABS: Free T4 Free Thyroxine 0.72 ng/dL (0.82-1.77); Thyroid Stimulating Hormone 3.19 uIU/mL (0.27-4.20)
[2024-12-18 13:49] LABS: Vitamin B12 432 pg/mL (232-1245)
[2024-12-19 04:14] LABS: T3 Total 94 ng/dL (76-181)
[2024-12-19 09:16] LABS: Folate Level > 20.0 ng/mL (4.8-37.3)
== END 2025-01-14 23:59 | disposition home or self-care (01) ==
PROVIDERS: Internal Medicine; PCP Nurse Practitioner Family; Visit Provider Internal Medicine Medical Oncology
DX: D51.8 Other vitamin B12 deficiency anemias (principal); E05.90 Thyrotoxicosis, unspecified without thyrotoxic crisis or storm; D50.9 Iron deficiency anemia, unspecified; R13.10 Dysphagia, unspecified; K22.2 Esophageal obstruction; K21.9 Gastro-esophageal reflux disease without esophagitis; Z79.899 Other long term (current) drug therapy; Z71.6 Tobacco abuse counseling
CPT/HCPCS: 36415; 80053; 82607; 82728; 82746; 84439; 84443; 84480; 85025; 99213

== ENCOUNTER → 2025-01-01 11:10 | Outpatient (BNVA) | payer MEDICARE, SELFPAY | PROVIDERS: PCP Nurse Practitioner Family; Visit Provider Internal Medicine | DX: E05.90 Thyrotoxicosis, unspecified without thyrotoxic crisis or storm (principal); E04.1 Nontoxic single thyroid nodule | CPT/HCPCS: 99214 ==

== ENCOUNTER → 2025-03-04 09:50 | Outpatient (BNVA) | payer MEDICARE, SELFPAY | PROVIDERS: PCP Nurse Practitioner Family; Visit Provider Internal Medicine | DX: E05.90 Thyrotoxicosis, unspecified without thyrotoxic crisis or storm (principal); E04.1 Nontoxic single thyroid nodule; R63.4 Abnormal weight loss; K21.9 Gastro-esophageal reflux disease without esophagitis | CPT/HCPCS: 84439; 84443; 84481 ==

== ENCOUNTER → 2025-03-09 09:16 | Outpatient (BNVA) | payer MEDICARE, SELFPAY | PROVIDERS: PCP Nurse Practitioner Family; Visit Provider Internal Medicine | DX: E05.90 Thyrotoxicosis, unspecified without thyrotoxic crisis or storm (principal); E04.1 Nontoxic single thyroid nodule; R63.4 Abnormal weight loss | CPT/HCPCS: 99214 ==

== ENCOUNTER 2025-04-16 09:55 | Outpatient (CLI) | payer MEDICARE, SELFPAY ==
[2025-04-16 10:52] LABS: Free T4 Free Thyroxine 1.09 ng/dL (0.82-1.77); Thyroid Stimulating Hormone 1.09 uIU/mL (0.27-4.20)
== END 2025-04-16 09:56 | disposition home or self-care (01) ==
PROVIDERS: PCP Nurse Practitioner Family; Visit Provider Internal Medicine
DX: E05.90 Thyrotoxicosis, unspecified without thyrotoxic crisis or storm (principal); E04.1 Nontoxic single thyroid nodule; R63.4 Abnormal weight loss; K21.9 Gastro-esophageal reflux disease without esophagitis
CPT/HCPCS: 36415; 84439; 84443; 84480

== ENCOUNTER 2025-04-16 10:11 | Oncology outpatient (recurring) (ONCR) | payer MEDICARE, SELFPAY ==
[2025-04-02 13:11] LABS: Hematocrit 30.4 % (36-47); Hemoglobin 9.40 g/dL (11.27-16.99); Mean Corpuscular HGB Conc 30.9 g/dL (30-55); Mean Corpuscular Hemoglobin 29.4 pg (27-33); Mean Corpuscular Volume 95.0 fl (85-98); Nucleated Red Blood Cells % 0 %; Platelet Count 421 10^3/cmm (157-399); Red Blood Count 3.20 10^6/uL (3.85-5.65); White Blood Count 8.52 10^3/uL (3.29-11.43)
[2025-04-02 13:33] LABS: Alanine Aminotransferase 10 U/L (0-33); Albumin Level 3.6 g/dL (3.5-5.2); Alkaline Phosphatase 135 U/L (35-105); Anion Gap 16.1 (5-19); Aspartate Amino Transferase 12 U/L (0-32); Blood Urea Nitrogen 15 mg/dL (8-23); Calcium 9.4 mg/dL (8.5-10.5); Carbon Dioxide 24 mmol/L (22-29); Chloride 104 mmol/L (98-107); Creatinine Clr Calc Pharmacy 52.1906; Ferritin 20 ng/mL (15-150); Globulin 3.0 g/dL (1.3-4.6); Glucose 122 mg/dL (65-115); Iron 26 ug/dL (37-145); Osmolality Calculated 292 mOsm/kg (285-295); Potassium 4.1 mmol/L (3.5-5.1); Sodium 140 mmol/L (136-145); Total Iron Binding Capacity 294 mcg/dl; Total Protein 6.6 g/dL (6.6-8.7); Unsaturated Iron Binding 268 ug/dL (112-347)
[2025-04-02 13:48] LABS: Vitamin B12 295 pg/mL (232-1245)
[2025-04-16] MEDS: ferric carboxy (PYXIS) 750 MG in sodium chloride 0.9% (100 ml) 100 ML 345 MG IV (12:20)
== END 2025-04-16 23:59 | disposition home or self-care (01) ==
PROVIDERS: PCP Nurse Practitioner Family; Visit Provider Internal Medicine
DX: D51.8 Other vitamin B12 deficiency anemias (principal); D50.9 Iron deficiency anemia, unspecified; Z79.899 Other long term (current) drug therapy
CPT/HCPCS: 36415; 80053; 82607; 82728; 82746; 83010; 83540; 83550; 83615; 83921; 85025; 85045; 85651; 96365; 99213; 99215; J1439; J7050

== ENCOUNTER 2025-04-23 09:43 | Oncology outpatient (recurring) (ONCR) | payer MEDICARE, SELFPAY ==
[2025-04-23] MEDS: ferric carboxy (PYXIS) 750 MG in sodium chloride 0.9% (100 ml) 100 ML 345 MG IV (10:36)
[2025-04-23 11:01] VITALS: BP 162/73; PULSE 73; O2SAT 98
== END 2025-05-17 23:59 | disposition home or self-care (01) ==
LOC: ONCMED 09:44
PROVIDERS: PCP Nurse Practitioner Family; Visit Provider Internal Medicine
DX: D51.8 Other vitamin B12 deficiency anemias (principal); Z79.899 Other long term (current) drug therapy
CPT/HCPCS: 96365; J1439

== ENCOUNTER → 2025-05-28 10:50 | Outpatient (BNVA) | payer MEDICARE, SELFPAY | PROVIDERS: PCP Nurse Practitioner Family; Visit Provider Nurse Practitioner | DX: D50.9 Iron deficiency anemia, unspecified (principal) | CPT/HCPCS: 80053; 82728; 83550; 85025 ==

== ENCOUNTER → 2025-06-30 13:37 | Outpatient (BNVA) | payer MEDICARE, SELFPAY | PROVIDERS: PCP Nurse Practitioner Family; Visit Provider Internal Medicine | DX: I73.9 Peripheral vascular disease, unspecified (principal); F17.210 Nicotine dependence, cigarettes, uncomplicated; R07.89 Other chest pain | CPT/HCPCS: 99214 ==

== ENCOUNTER → 2025-07-08 13:20 | Outpatient (BNVA) | payer MEDICARE, SELFPAY | PROVIDERS: PCP Nurse Practitioner Family; Visit Provider Internal Medicine | DX: D50.9 Iron deficiency anemia, unspecified (principal) | CPT/HCPCS: 80053; 82728; 83550; 85025 ==

== ENCOUNTER → 2025-07-15 12:16 | Outpatient (BNVA) | payer MEDICARE, SELFPAY | PROVIDERS: PCP Nurse Practitioner Family; Visit Provider Internal Medicine Endocrinology, Diabetes & Metabolism | DX: R63.4 Abnormal weight loss (principal); E04.1 Nontoxic single thyroid nodule | CPT/HCPCS: 99213 ==

== ENCOUNTER 2025-07-31 10:28 | Oncology outpatient (recurring) (ONCR) | payer MEDICARE, SELFPAY ==
--- NOTE | 2025-07-31 10:45 | USR_ITS ---
PROCEDURE INFORMATION: Exam: US Soft Tissue Head and Neck, Thyroid Exam date and time: 07/31/2025 11:04 AM Age: 69 years old Clinical indication: Enlarged lymph nodes; Localized; Thyroid nodule; Additional info: E04.1 - nontoxic single thyroid nodule TECHNIQUE: Imaging protocol: Real-time ultrasound scan of the neck with image documentation. Exam focused on the thyroid. COMPARISON: US thyroid [id number] 06/13/2024 11:38 AM FINDINGS: Right thyroid lobe: Right lobe: 4.1 x 1.8 x 1.3 cm. Tiny nodules. Left thyroid lobe: Left lobe: 3.9 x 2 x 1.4 cm. Hypoechoic solid, well-circumscribed nodule with regular margins, wider than tall lower pole 1.6 x 1 x 1 cm.TIRADS 4. Isthmus: No nodules. US/US thyroid [id number] IMPRESSION: Thyroid nodule as described above. COMMENTS: 1. Recommendations for TI-RADS scores are listed below for reference. (See Reference: Torito) 2. TI-RADS 1, Benign. 0 points: No fine needle aspiration (FNA) or follow-up ultrasound recommended. 3. TI-RADS 2, Not suspicious. 2 points: No FNA or follow-up ultrasound recommended. 4. TI-RADS 3, Mildly suspicious. 3 points: FNA if equal or greater than 2.5 cm. Follow-up ultrasound if 1.5 to 2.4 cm in 1, 3, and 5 years. 5. TI-RADS 4, Moderately Suspicious. 4-6 points: FNA if equal or greater than 1.5 cm. Follow-up ultrasound if 1 to 1.4 cm in 1, 2, 3, and 5 years. 6. TI-RADS 5, Highly Suspicious. 7 points or greater: FNA if equal or greater than 1 cm. Follow-up ultrasound if 0.5 to 0.9 cm every year for 5 years. REFERENCES: Torito FN, Stephanie BOSCH, Cristobal JOHNSON et al. ACR Thyroid Imaging, Reporting and Data System (TI-RADS): White Paper of the ACR TI-RADS Committee. J Am Ava Radiol. 2017; 14: 587-595.
== END 2025-08-16 23:59 | disposition home or self-care (01) ==
PROVIDERS: PCP Nurse Practitioner Family; Visit Provider Internal Medicine
DX: E04.1 Nontoxic single thyroid nodule (principal); E05.90 Thyrotoxicosis, unspecified without thyrotoxic crisis or storm; R63.4 Abnormal weight loss; K21.9 Gastro-esophageal reflux disease without esophagitis
CPT/HCPCS: 76536

== ENCOUNTER 2025-07-31 11:42 | Outpatient (CLI) | payer MEDICARE, SELFPAY ==
[2025-07-31 13:22] LABS: Free T4 Free Thyroxine 1.14 ng/dL (0.82-1.77); Thyroid Stimulating Hormone 0.54 uIU/mL (0.27-4.20)
== END 2025-07-31 11:43 | disposition home or self-care (01) ==
PROVIDERS: PCP Nurse Practitioner Family; Visit Provider Internal Medicine
DX: E05.90 Thyrotoxicosis, unspecified without thyrotoxic crisis or storm (principal); E04.1 Nontoxic single thyroid nodule; R63.4 Abnormal weight loss; K21.9 Gastro-esophageal reflux disease without esophagitis
CPT/HCPCS: 36415; 84439; 84443; 84480

== ENCOUNTER → 2025-08-27 13:59 | Outpatient (BNVA) | payer MEDICARE, SELFPAY | PROVIDERS: PCP Nurse Practitioner Family; Visit Provider Orthopaedic Surgery | DX: S32.010A Wedge compression fracture of first lumbar vertebra, initial encounter for closed fracture (principal); X58.XXXA Exposure to other specified factors, initial encounter | CPT/HCPCS: 72100; 99203 ==

== ENCOUNTER 2025-09-02 11:27 | Outpatient (CLI) | payer MEDICARE, SELFPAY ==
--- NOTE | 2025-09-02 12:15 | MR_ITS ---
WS: [id number] MRI LUMBAR SPINE NONCONTRAST HISTORY: lumbar pain, follow-up compression fracture. COMPARISON: Lumbar spine radiograph 08/27/2025 TECHNIQUE: Sagittal and axial multisequence imaging is submitted. Mild degenerative disc disease in the cervical spine. Biconcave compression fracture at L1 with retrolisthesis of the superior endplate by 5.4 mm. There is moderate increased T2 and FLAIR signal within the vertebral body extending into the posterior elements. Retrolisthesis of L1 does may contact on the ventral conus. No high-grade stenosis but there is mild deformity. Mild bilateral foraminal stenosis at T12-L1. Disc spaces are narrowed and desiccated. Conus terminates normally at L1. L1-L2: Bilateral facet joint arthritis. Small amount of fluid in the RIGHT facet joint. Mild bilateral foraminal stenosis, LEFT greater than RIGHT. L2-L3: Mild disc annular disc bulging. Ligamentum flavum and facet arthritis. Broad-based RIGHT foraminal and extraforaminal disc protrusion effacing fat in the neural foramen. Mild central and subarticular recess stenosis. Moderate bilateral foraminal stenosis greatest on the RIGHT. There is mild disc contact on the traversing and exiting nerve roots, greatest on the RIGHT. L3-L4: Diffuse annular disc bulging with osteophytic ridging, ligamentum flavum and facet arthritis. Moderate to severe central and bilateral subarticular recess stenosis. There is disc contacting the traversing L4 nerve roots in the subarticular recesses. Diffuse disc bulging into the foramina with mild to moderate foraminal stenosis. L4-L5: Diffuse annular disc bulging with ligamentum flavum and facet arthritis. Narrowing of the thecal sac and disc encroachment upon the subarticular recesses and traversing L5 nerve roots. Mild RIGHT and moderate LEFT foraminal stenosis due to disc osteophyte disease. L5-S1: Diffuse disc bulging with mild contact on the S1 nerve roots. Severe RIGHT and mild LEFT foraminal stenosis. Paravertebral soft tissues are normal. MR/MR lumbar spine wo con* [id number] IMPRESSION: 1. Biconcave acute to subacute L1 compression fracture. Retrolisthesis of the superior endplate by 5.4 mm. 2. Retrolisthesis of L1 contacts the conus with slight deformity. 3. Multilevel central and foraminal stenosis due to combination of disc diseas e, osteophytosis, ligamentum flavum and facet arthritis. 4. Severe RIGHT and mild LEFT foraminal stenosis at L5-S1. 5. Moderate LEFT and mild RIGHT foraminal stenosis at L4-5. Mild subarticular recess narrowing. 6. Moderate to severe central and bilateral subarticular recess stenosis at L3 -4. Moderate foraminal stenosis at L3-4. There is disc contacting the traversin g and exiting nerve roots. 7. Broad-based RIGHT foraminal and extraforaminal disc protrusion effacing fat in the foramen at L2-3. Moderate bilateral foraminal stenosis, greater on the RIGHT. There is disc and osteophyte contacting the traversing and exiting nerve roots at L2-3. 8. Mild bilateral foraminal stenosis, LEFT greater than RIGHT at L1-2.
== END 2025-09-02 11:28 | disposition home or self-care (01) ==
LOC: RAD 11:29
PROVIDERS: PCP Nurse Practitioner Family; Visit Provider Orthopaedic Surgery
DX: M51.16 Intervertebral disc disorders with radiculopathy, lumbar region (principal); T14.8XXA Other injury of unspecified body region, initial encounter; S32.010A Wedge compression fracture of first lumbar vertebra, initial encounter for closed fracture; X58.XXXA Exposure to other specified factors, initial encounter; M48.061 Spinal stenosis, lumbar region without neurogenic claudication; M48.07 Spinal stenosis, lumbosacral region; M47.816 Spondylosis without myelopathy or radiculopathy, lumbar region
CPT/HCPCS: 72148

== ENCOUNTER → 2025-09-08 13:42 | Outpatient (BNVA) | payer MEDICARE, SELFPAY | PROVIDERS: PCP Nurse Practitioner Family; Visit Provider Orthopaedic Surgery | DX: S32.010A Wedge compression fracture of first lumbar vertebra, initial encounter for closed fracture (principal); M48.062 Spinal stenosis, lumbar region with neurogenic claudication; X58.XXXA Exposure to other specified factors, initial encounter | CPT/HCPCS: 99213 ==

== ENCOUNTER 2025-09-16 12:30 | Oncology outpatient (recurring) (ONCR) | payer MEDICARE, SELFPAY ==
[2025-09-09 11:03] VITALS: BP 111/66; PULSE 97; RESP 16; TEMP 36.7; O2SAT 95
[2025-09-09] MEDS: ferric carboxy (PYXIS) 750 MG in sodium chloride 0.9% (100 ml) 100 ML 345 MG IV (11:13)
[2025-09-09 11:35] VITALS: BP 111/57; PULSE 93; RESP 16; TEMP 36.6; O2SAT 96
[2025-09-16] MEDS: ferric carboxy (PYXIS) 750 MG in sodium chloride 0.9% (100 ml) 100 ML 345 MG IV (12:42)
[2025-09-16 13:15] VITALS: BP 112/72; PULSE 72; RESP 16; TEMP 36.9; O2SAT 96
== END 2025-09-16 23:59 | disposition home or self-care (01) ==
PROVIDERS: PCP Nurse Practitioner Family; Visit Provider Internal Medicine
DX: D50.9 Iron deficiency anemia, unspecified; Z79.899 Other long term (current) drug therapy; Z53.9 Procedure and treatment not carried out, unspecified reason
CPT/HCPCS: 96365; J1439; J7050